=== PATIENT | female | born 1930 | race Caucasian/White ===

== ENCOUNTER 2018-03-10 22:51 | Emergency (ER) | payer OTHER ==
--- NOTE | 2018-03-10 23:08 | ED MVC/FALL/TRAUMA COMPLAINT ---
History of Present Illness General Chief Complaint: Fall Stated Complaint: FALL Source: patient Exam Limitations: no limitations Vital Signs & Intake/Output Vital Signs & Intake/Output Vital Signs Date Time Temp Pulse Resp B/P B/P Pulse O2 O2 Flow FiO2 Mean Ox Delivery Rate 03/11 0130 98.0 73 20 124/78 97 03/10 2256 97.8 73 18 118/73 97 Nasal 2.0L Cannula ED Intake and Output 03/11 0000 03/10 1200 Intake Total Output Total Balance Patient 150 lb Weight Weight Estimated Measurement Method Allergies Coded Allergies: NO KNOWN ALLERGIES (01/04/11) Reconcile Medications Pravastatin Sodium (Pravachol) 40 MG TABLET 1 TAB PO DAILY CHOL (Reported) Triage Note: PER EMS PT FELL EARLY THIS AM, AND LAID ON FLOOR FOR A TIME, PT SOMEHOW GOT UP BUT FELL AGAIN, AND COULD NOT GET UP UNTIL SON GOT THERE THIS PM, CO PAIN TO L HIP HX OF FALLS ALL THE TIME DOES NOT ROUTINELY GO TO DRS. ON O2 AT 1 LITER BASELINE Triage Nurses Notes Reviewed? yes Onset: Abrupt Duration: hour(s): Timing: recent history Severity: moderate Injuries/Fall Location: lower extremity Method of Injury: fall Loss of Consciousness: no loss of consciousness Modifying Factors: Improves With: rest. Worsens With: movement, palpation. Associated Symptoms: left hip pain HPI: 87 yo woman from home, presents after a fall, sometime in the morning of 03/10. She reports that she was eating ice cream and then suffered a mechanical fall. "I feel on my bum and couldn't get up... I was on the ground for a long time." She was unable to get up. She notes left hip pain when she tries to move. She denies loss of consciousness, but thinks she maybe hit her head. She confers a mild headache, but no focal pain in neck, chest, abdomen or other extremities. She denies blood thinners. She is otherwise well. Past History Travel History Traveled to [place] past 21 day No Medical History Any Pertinent Medical History? see below for history Respiratory: on home 02 1 liter Surgical History Surgical History: none Psychosocial History Who do you live with Paid Attentent What is your primary language Swedish Family History Hx Contributory? No Review of Systems Review of Systems Constitutional: Reports: no symptoms. Eyes: Reports: no symptoms. Ears, Nose, Throat, Mouth: Reports: no symptoms. Respiratory: Reports: no symptoms. Cardiovascular: Reports: no symptoms. Gastrointestinal/Abdominal: Reports: no symptoms. Genitourinary: Reports: no symptoms. Musculoskeletal: Reports: no symptoms. Skin: Reports: no symptoms. Neurological/Psychological: Reports: no symptoms. All Other Systems: Reviewed and Negative Physical Exam Physical Exam General Appearance: well developed/nourished, mild distress Head: atraumatic, normal appearance Eyes: Bilateral: normal appearance, PERRL, EOMI. Ears, Nose, Throat, Mouth: hearing grossly normal, moist mucous membrane Neck: normal inspection, supple, full range of motion, normal alignment Respiratory: normal breath sounds, chest non-tender, no respiratory distress, quiet respiration, lungs clear Cardiovascular: regular rate/rhythm Gastrointestinal: normal bowel sounds, soft, non-tender Back: normal inspection, normal range of motion Extremities: left leg externally rotated and shortened. 2+distal pulses and light touch intact bilaterally. Neurologic/Psych: no motor/sensory deficits, awake, alert, oriented x 3 Skin: intact, normal color, warm/dry Core Measures ACS in differential dx? No CVA/TIA Diagnosis No Sepsis Present: No Sepsis Focused Exam Completed? No Progress Differential Diagnosis: C/T/L spine injury, ext injury, ICH Plan of Care: Orders Procedure Date/time Status Vital, Insertion/Removal/Asses 03/11 0001 Active CULTURE,URINE 03/11 0001 Active URINALYSIS 03/11 0001 Complete TROPONIN LEVEL 03/10 2309 Complete PARTIAL THROMBOPLASTIN TIME 03/10 2309 Complete PROTHROMBIN TIME 03/10 230 Complete LIPASE 03/10 230 Complete HEPATIC FUNCTION PANEL 03/10 230 Complete CREATINE PHOSPHOKINASE 03/10 2309 Complete CBC WITHOUT DIFFERENTIAL 03/10 2309 Complete BASIC METABOLIC PANEL 03/10 230 Complete AMYLASE 03/10 230 Complete EKG 03/10 2309 Active TYPE & SCREEN (NOT X-MATCH) 03/10 2309 Complete Laboratory Tests 03/11/18 0150: Urinalysis MOD H, Urine Color YEL, Urine Clarity HAZY H, Urine pH 5.5, Ur Specific Salmon >= 1.030, Urine Protein 30 H, Urine Ketones TRACE H, Urine Nitrite NEG, Urine Bilirubin NEG, Urine Urobilinogen 0.2, Ur Leukocyte Esterase NEG, Ur Microscopic SEDIMENT EXAMINED, Urine RBC 5-10 H, Urine WBC 1-3 H, Ur Epithelial Cells MANY H, Urine Bacteria FEW H, Urine Hemoglobin SMALL H, Urine Glucose NEG 03/10/18 2315: Anion Gap 12, Estimated GFR 36 L, BUN/Creatinine Ratio 37.1 H, Glucose 146 H, Calcium 9.8, Total Bilirubin 0.7, Direct Bilirubin 0.2, AST 40 H, ALT 33, Alkaline Phosphatase 61, Creatine Kinase 719 H, Troponin I 1.42 *H, Total Protein 7.4, Albumin 4.1, Amylase 46, Lipase 29, PT 11.5, INR 1.05, APTT 29, CBC w Diff NO MAN DIFF REQ, RBC 4.05 L, MCV 90.6, MCH 30.1, MCHC 33.2, RDW 14.9 H, MPV 7.7, Gran % 87.7 H, Lymphocytes % 4.6 L, Monocytes % 7.6, Eosinophils % 0, Basophils % 0.1, Absolute Granulocytes 11.9 H, Absolute Lymphocytes 0.6 L, Absolute Monocytes 1.0 H, Absolute Eosinophils 0, Absolute Basophils 0 Microbiology 03/11 0150 URINE ROUT: Urine Culture - RECD Diagnostic Imaging: Viewed by Me: CT Scan. Discussed w/RAD: CT Scan. Radiology Impression: PATIENT: PILI FREY I PRESENT AGE: 87 PATIENT ACCOUNT NO: [id number] : 32 LOCATION: [facility] ORDERING PHYSICIAN: Rajendra Pedraza MD SERVICE DATE: 03/10/18 EXAM TYPE: RAD - XRY-AP PELVIS; XRY-HIP 2-3 VIEWS, LEFT EXAMINATION: 1. Pelvis. 2. Left hip. CLINICAL INFORMATION: Fall. Hip fracture. COMPARISON: None TECHNIQUE: Single view pelvis. AP crosstable lateral view of left hip. FINDINGS: There is a fracture through the left femoral neck. The distal fracture fragment is angulated and displaced superiorly. Femoral head remains seated in acetabulum. 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 There is multilevel degenerative spondylosis of the spine with disc height narrowing vacuum disc phenomena endplate spurring. Large volume of stool in visualized colonic bowel loops. IMPRESSION: Fracture left femoral neck. DICTATED BY: Tomás Sunshine MD DATE/TIME DICTATED:03/10/182336 SLIP BOX CHANGER:RAD.MINA DATE/TIME TRANSCRIBED:03/10/182336 CONFIDENTIAL, DO NOT COPY WITHOUT APPROPRIATE AUTHORIZATION. <Electronically signed in Other Vendor System> SIGNED BY: Tomás Sunshine MD 03/10/182341, PATIENT: PILI FREY I PRESENT AGE: 87 PATIENT ACCOUNT NO: [id number] : 32 LOCATION: [facility] ORDERING PHYSICIAN: Rajendra Pedraza MD SERVICE DATE: 03/10/18 EXAM TYPE: CAT - CT CERV SPINE WO IV CONTRAST; CT HEAD WO IV CONTRAST EXAMINATION: CT HEAD WITHOUT CONTRAST CT CERVICAL SPINE WITHOUT CONTRAST CLINICAL INFORMATION: Fall. Trauma. COMPARISON: 924.44 TECHNIQUE: Imaging was performed from the skull base to vertex without intravenous administration of contrast. In addition, helical noncontrast CT imaging was acquired through the cervical spine and source images were reviewed along with axial reconstructions and sagittal and coronal MPRs. DLP: 924.44 mGy- cm FINDINGS: HEAD: No intracranial mass, hemorrhage, or midline shift is visualized. There is atrophy with prominence of the ventricles and the sulci and hypodensity of the periventricular white matter due to chronic small vessel ischemic disease. There is vascular calcifications of the internal carotid arteries bilaterally. No extra-axial collections are identified. The paranasal sinuses and mastoid air cells are well aerated. CERVICAL SPINE: There is no evidence of acute cervical spine fracture. Vertebral bodies remain normal in height. Cervical vertebrae have normal alignment. There is advanced multilevel degenerative spondylosis of the cervical spine with disc height narrowing and endplate spurs and facet joint arthrosis No pre- or paravertebral soft tissue abnormality is identified. There is emphysematous lucencies of the upper lobes. There is vascular calcification of the aorta and the carotids. IMPRESSION: 1. No acute intracranial pathology. 2. No CT evidence of acute cervical spine fracture or traumatic subluxation DICTATED BY: Tomás Sunshine MD DATE/TIME DICTATED:2345 SLIP BOX CHANGER:JUNIE DATE/TIME TRANSCRIBED:03/10/182345 CONFIDENTIAL, DO NOT COPY WITHOUT APPROPRIATE AUTHORIZATION. <Electronically signed in Other Vendor System> SIGNED BY: Tomás Sunshine MD 03/10/182354, PATIENT: PILI FREY I PRESENT AGE: 87 PATIENT ACCOUNT NO: [id number] : 32 LOCATION: [facility] ORDERING PHYSICIAN: Rajendra Pedraza MD SERVICE DATE: 03/10/18 EXAM TYPE: CAT - CT ABD & PELVIS W/ O IV CONTRAS; CT CHEST WO IV CONTRAST EXAMINATION: CT CHEST, ABDOMEN AND PELVIS WITHOUT CONTRAST CLINICAL INFORMATION: Trauma. Fall. COMPARISON: Chest x-ray 07/2017. Pelvis and left hip 03/10/2018 TECHNIQUE: Multidetector volumetric CT imaging of the chest, abdomen and pelvis was obtained without IV or oral contrast. Coronal and sagittal reformatted images are performed at CT scanner. DLP: 362.82 mGy-cm. FINDINGS: CT CHEST: Lungs: There is linear atelectasis or scarring seen along the left major fissure at the anterior left lung base. The lungs are otherwise clear. The central bronchial airways are open. Mediastinum: No mediastinal mass or hematoma. There is extensive vascular wall calcifications of aorta. There is coronary artery calcification. There is no pericardial effusion. Pleura: There is no pleural effusion. No pleural mass or thickening. Axilla: No lymphadenopathy. LIVER, GALLBLADDER, AND BILIARY TREE: The liver is normal in size, shape, and attenuation. No focal hepatic lesion or biliary ductal dilatation is present. Small gallstones layering dependently in the gallbladder. No edema around the gallbladder. Extrahepatic CBD measures 1 cm. No calcified stone seen in the bile ducts. PANCREAS: Unremarkable. SPLEEN: Unremarkable. ADRENAL GLANDS: Unremarkable. KIDNEYS AND URETERS: The kidneys are normal in size, shape, and attenuation. No hydronephrosis, hydroureter, or calculi seen. No perinephric stranding. 1.1 cm pedunculated cyst off the midpole of the left kidney posteriorly. BLADDER: Unremarkable. GASTROINTESTINAL TRACT: The small and large bowel are unremarkable. Moderate to large-volume of stool throughout the colon. No acute changes of the bowel wall. No bowel obstruction. The appendix is unremarkable. The small bowel loops are unremarkable. ABDOMINAL WALL: No significant hernia is appreciated. LYMPH NODES: Normal. VASCULAR: There are extensive atherosclerotic vascular calcifications of aorta and iliac arteries. PELVIC VISCERA: Multiple calcified fibroids within uterus. No adnexal abnormality. OSSEOUS STRUCTURES: There is a transverse fracture through the left femoral neck. There is marked degenerative arthrosis of the right hip area there is a multilevel degenerative spondylosis of the dorsal and lumbar spine with disc height narrowing and endplate spur and facet joint arthrosis. There is a levoscoliosis of the lumbar spine. IMPRESSION: 1. Fracture of the left femoral neck. 2. No acute abnormality of the chest abdomen or pelvis DICTATED BY: Tomás Sunshine MD DATE/TIME DICTATED:03/10/182351 SLIP BOX CHANGER:JUNIE DATE/ TIME TRANSCRIBED:03/10/182351 CONFIDENTIAL, DO NOT COPY WITHOUT APPROPRIATE AUTHORIZATION. <Electronically signed in Other Vendor System> SIGNED BY: Tomás Sunshine MD 03/11/186 Initial ED EKG: normal axis, normal intervals, normal p-waves, normal QRS complex, normal sinus rhythm Departure Departure Disposition: OTHER [facility] (ACUTE) Condition: Stable Clinical Impression Primary Impression: Closed left hip fracture Secondary Impressions: Myocardial infarction Referrals: Jayy SALDAÑA,Arpit Vasquez (PCP/Family) Departure Forms: Customer Survey General Discharge Information Comments 03/11/18, 1:02AM...call placed to ortho... discussed with dr. nunez (cards) .... pt merits supportive measures with normal ekg, would defer heparin given fracture and concern for bleeding. aspirin given. 03/11/18, 1:56am... due to the complicated multi-system involvement of the patient's condition, pt merits transfer... discussed with dr. obregon, [facility], who accepts patient. Critical Care Note Critical Care Note Critical Care Time: 30-74 min Critical Care Note Critical Care Time: 30-74 min
[2018-03-10 23:32] LABS: ABSOLUTE BASOPHIL COUNT 0 /CUMM (0.0-0.2); ABSOLUTE EOSINOPHIL COUNT 0 /CUMM (0.0-0.7); ABSOLUTE GRANULOCYTE CT 11.9 /CUMM (1.4-6.5); ABSOLUTE LYMPH COUNT 0.6 /CUMM (1.2-3.4); BASOPHIL % 0.1 % (0.0-2.0); EOSINOPHIL % 0 % (0-5); HEMATOCRIT 36.7 % (37-47); MEAN CORPUSCULAR HGB 30.1 PG (27.0-31.0); MEAN CORPUSCULAR HGB CONC 33.2 G/DL (33.0-37.0); MEAN CORPUSCULAR VOLUME 90.6 FL (81.0-99.0); MEAN PLATELET VOLUME 7.7 FL (7.4-10.4); PLATELET COUNT 252 /CUMM (130-400); RBC DISTRIBUTION WIDTH 14.9 % (11.5-14.5); RED BLOOD CELL CT 4.05 /CUMM (4.20-5.40); WHITE BLOOD CELL COUNT 13.6 /CUMM (4.8-10.8)
[2018-03-10 23:39] LABS: PT 11.5 SEC (9.4-12.5); PTT 29 SEC (25-37)
--- NOTE | 2018-03-10 23:42 | RADIOLOGY REPORT ---
EXAMINATION: 1. Pelvis. 2. Left hip. CLINICAL INFORMATION: Fall. Hip fracture. COMPARISON: None TECHNIQUE: Single view pelvis. AP crosstable lateral view of left hip. FINDINGS: There is a fracture through the left femoral neck. The distal fracture fragment is angulated and displaced superiorly. Femoral head remains seated in acetabulum. 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 There is multilevel degenerative spondylosis of the spine with disc height narrowing vacuum disc phenomena endplate spurring. Large volume of stool in visualized colonic bowel loops. IMPRESSION: Fracture left femoral neck.
[2018-03-10 23:46] LABS: GRANULOCYTE % 87.7 % (42.2-75.2)
--- NOTE | 2018-03-10 23:55 | CT SCAN REPORT ---
EXAMINATION: CT HEAD WITHOUT CONTRAST CT CERVICAL SPINE WITHOUT CONTRAST CLINICAL INFORMATION: Fall. Trauma. COMPARISON: 924.44 TECHNIQUE: Imaging was performed from the skull base to vertex without intravenous administration of contrast. In addition, helical noncontrast CT imaging was acquired through the cervical spine and source images were reviewed along with axial reconstructions and sagittal and coronal MPRs. DLP: 924.44 mGy-cm FINDINGS: HEAD: No intracranial mass, hemorrhage, or midline shift is visualized. There is atrophy with prominence of the ventricles and the sulci and hypodensity of the periventricular white matter due to chronic small vessel ischemic disease. There is vascular calcifications of the internal carotid arteries bilaterally. No extra-axial collections are identified. The paranasal sinuses and mastoid air cells are well aerated. CERVICAL SPINE: There is no evidence of acute cervical spine fracture. Vertebral bodies remain normal in height. Cervical vertebrae have normal alignment. There is advanced multilevel degenerative spondylosis of the cervical spine with disc height narrowing and endplate spurs and facet joint arthrosis No pre- or paravertebral soft tissue abnormality is identified. There is emphysematous lucencies of the upper lobes. There is vascular calcification of the aorta and the carotids. IMPRESSION: 1. No acute intracranial pathology. 2. No CT evidence of acute cervical spine fracture or traumatic subluxation
--- NOTE | 2018-03-11 00:07 | CT SCAN REPORT ---
EXAMINATION: CT CHEST, ABDOMEN AND PELVIS WITHOUT CONTRAST CLINICAL INFORMATION: Trauma. Fall. COMPARISON: Chest x-ray 01/03/2017. Pelvis and left hip 03/10/2018 TECHNIQUE: Multidetector volumetric CT imaging of the chest, abdomen and pelvis was obtained without IV or oral contrast. Coronal and sagittal reformatted images are performed at CT scanner. DLP: 362.82 mGy-cm. FINDINGS: CT CHEST: Lungs: There is linear atelectasis or scarring seen along the left major fissure at the anterior left lung base. The lungs are otherwise clear. The central bronchial airways are open. Mediastinum: No mediastinal mass or hematoma. There is extensive vascular wall calcifications of aorta. There is coronary artery calcification. There is no pericardial effusion. Pleura: There is no pleural effusion. No pleural mass or thickening. Axilla: No lymphadenopathy. LIVER, GALLBLADDER, AND BILIARY TREE: The liver is normal in size, shape, and attenuation. No focal hepatic lesion or biliary ductal dilatation is present. Small gallstones layering dependently in the gallbladder. No edema around the gallbladder. Extrahepatic CBD measures 1 cm. No calcified stone seen in the bile ducts. PANCREAS: Unremarkable. SPLEEN: Unremarkable. ADRENAL GLANDS: Unremarkable. KIDNEYS AND URETERS: The kidneys are normal in size, shape, and attenuation. No hydronephrosis, hydroureter, or calculi seen. No perinephric stranding. 1.1 cm pedunculated cyst off the midpole of the left kidney posteriorly. BLADDER: Unremarkable. GASTROINTESTINAL TRACT: The small and large bowel are unremarkable. Moderate to large-volume of stool throughout the colon. No acute changes of the bowel wall. No bowel obstruction. The appendix is unremarkable. The small bowel loops are unremarkable. ABDOMINAL WALL: No significant hernia is appreciated. LYMPH NODES: Normal. VASCULAR: There are extensive atherosclerotic vascular calcifications of aorta and iliac arteries. PELVIC VISCERA: Multiple calcified fibroids within uterus. No adnexal abnormality. OSSEOUS STRUCTURES: There is a transverse fracture through the left femoral neck. There is marked degenerative arthrosis of the right hip area there is a multilevel degenerative spondylosis of the dorsal and lumbar spine with disc height narrowing and endplate spur and facet joint arthrosis. There is a levoscoliosis of the lumbar spine. IMPRESSION: 1. Fracture of the left femoral neck. 2. No acute abnormality of the chest abdomen or pelvis
[2018-03-11 01:30] VITALS: BP 124/78
[2018-03-11] MEDS ORDERED: PRAVACHOL40 M1 PO (01:52)
== END 2018-03-11 02:33 | disposition short-term general hospital (02) ==
LOC: ERH 22:51
PROVIDERS: Pediatrics
DX: S72.002A Fracture of unspecified part of neck of left femur, initial encounter for closed fracture (principal); I21.9 Acute myocardial infarction, unspecified; W19.XXXA Unspecified fall, initial encounter; Y93.9 Activity, unspecified; Y92.9 Unspecified place or not applicable; E78.00 Pure hypercholesterolemia, unspecified
CPT/HCPCS: 72170; 73502-LT; 74176; 81001; 87086; 93005; 93010; 96374; 96375; 99291; J0131

== ENCOUNTER 2018-03-22 08:25 | Observation (INO) | payer OTHER ==
[~2018-03-22] VITALS: Ht 157.5 cm; Wt 64.9 kg
[~2018-03-22 08:25] MED LIST: PRAVACHOL40 M1 PO
--- NOTE | 2018-03-22 09:01 | ED GENERAL ADULT ---
History of Present Illness General Chief Complaint: General Adult Stated Complaint: BIBA ALTERED MENTAL STATUS Source: EMS Exam Limitations: confusion Vital Signs & Intake/Output Vital Signs & Intake/Output Vital Signs Date Time Temp Pulse Resp B/P B/P Pulse O2 O2 Flow FiO2 Mean Ox Delivery Rate 03/22 1340 98.3 71 20 139/62 100 Nasal Cannula 03/22 1118 98.3 68 20 160/75 100 Nasal Cannula 03/22 0920 97.8 78 16 151/68 96 Nasal 3.0L Cannula 03/22 0838 94 Nasal 2.0L Cannula 03/22 0838 97.5 77 22 106/53 94 Nasal 2.0L Cannula Allergies Coded Allergies: NO KNOWN ALLERGIES (01/04/11) Reconcile Medications Acetaminophen (Acephen) 650 MG SUPP.RECT 1 SUPP TX Q4H PRN PAIN/TEMP ( Reported) Acetaminophen (Pain Reliever) 325 MG TABLET 3 TAB PO Q6H PRN PAIN (Reported) Albuterol Sulfate 2.5 MG/3 ML (0.083 %) VIAL.NEB 1 Vial INH/MIGUELINA Q4P PRN SOB/ WHEEZING (Reported) Aspirin (Ecotrin*) 81 MG TABLET.DR 1 TAB PO DAILY HEART/BLOOD (Reported) Bisacodyl 10 MG SUPP.RECT 1 SUP RC AD PRN CONSTIPATION (Reported) Ipratropium/Albuterol Sulfate (Iprat-Albut 0.5-3(2.5) MG/3 Ml) 0.5 MG-3 MG (2.5 MG BASE)/3 ML AMPUL.NEB 1 VIAL INH TID RESP. (Reported) Magnesium Hydroxide (Milk Of Magnesia) 400 MG/5 ML ORAL.SUSP 30 ML PO DAILY PRN CONSTIPATION (Reported) Melatonin 3 MG TABLET 1 TAB PO QHS SUPPLEMENT (Reported) Na Phos,M-B/Na Phos,Di-Ba (Fleet Enema) 19 GRAM-7 GRAM/118 ML ENEMA 1 E RC AD PRN CONSTIPATION (Reported) Polyethylene Glycol 3350 (Miralax) 17 GRAM POWD.PACK 1 PAC PO DAILY GI ( Reported) dissolve in water Pravastatin Sodium (Pravachol) 40 MG TABLET 1 TAB PO DAILY CHOL (Reported) Sennosides/Docusate Sodium (Senna Plus Tablet) 8.6 MG-50 MG TABLET 2 TAB PO BID GI (Reported) Tiotropium Page (Spiriva) 18 MCG CAP.W.DEV 1 CAP INH DAILY COPD (Reported) Trazodone HCl 50 MG TABLET 25 MG PO Q8H PRN ANXIETY (Reported) Triage Note: 87F SIB SNF/STR FOR PERIOD OF UNRESPONSIVENESS. ON EMS ARRIVAL, PT PRESENTED W SNORING RESPIRATIONS AND O2 SAT OF 82% ON HER BASELINE 2LNC. RECENTLY HAD LEFT HIP SX WITH OLIMPIA INTACT. INCISION LOOKS WELL HEALING, NON ERYTHEMATOUS AND NO DRAINAGE NOTED. PT ARRIVES WITH EYES CLOSED AND MOANING OUT "HELP ME!". STATES THAT HER BONES HURT AND "I WANT SOME MORPHINE!". ABLE TO ANSWER SIMPLE QUESTIONS. ACCUCHECK 116. BP 106/53. Triage Nurses Notes Reviewed? yes HPI: 87-year-old female brought by EMS for altered mental status. The patient was at a usp following the surgery. The patient was unresponsive this morning , EMS was called. They found the patient was hypotensive in the 80s. The patient was breathing, and not hypoxic. They brought her in. She has become more more responsive at time. The patient's only complaint is that I need help but does not give any more details. Denies any specific complaints. Denies any review of system. Past History Travel History Traveled to [place] past 21 day No Medical History Any Pertinent Medical History? see below for history Neurological: NONE EENT: NONE Cardiovascular: hyperlipidemia Respiratory: on home 02 1 liter Gastrointestinal: NONE Hepatic: NONE Renal: NONE Musculoskeletal: NONE Psychiatric: NONE Endocrine: NONE Surgical History Surgical History: none Psychosocial History Who do you live with Paid Attentent What is your primary language Congolese Tobacco Use: Refused to answer ETOH Use: denies use Illicit Drug Use: denies illicit drug use Family History Hx Contributory? Yes Review of Systems Review of Systems Constitutional: Denies: chills, diaphoresis, fever. Comments She denies any complaints. Physical Exam Physical Exam General Appearance: no apparent distress, awake, comfortable Head: atraumatic, normal appearance Eyes: Bilateral: PERRL, EOMI, pale conjunctivae. Ears, Nose, Throat: normal pharynx, normal ENT inspection Neck: normal inspection, supple, full range of motion Respiratory: normal breath sounds, chest non-tender, no respiratory distress Cardiovascular: regular rate/rhythm, edema Gastrointestinal: normal bowel sounds, soft, non-tender Back: normal inspection, normal range of motion Extremities: see below Skin: intact, normal color, warm/dry Comments: Surgical scar on the left hip. No tenderness. No signs of infection. Core Measures ACS in differential dx? Yes CVA/TIA Diagnosis: No Sepsis Present: No Sepsis Focused Exam Completed? No Progress Differential Diagnoses No apparent distress. The patient is awake. Stable vital signs. Not hypoxic. Stable blood pressure. Plan of Care: Orders Procedure Date/time Status Heart Healthy Diet 03/22 L Complete Heart Healthy Diet 03/22 D Active EKG 03/[address] in observation 03/22 1415 Active ED Holding Orders 03/22 1415 Active Code Status 03/22 141 Active Add-on Test (ER Only) 03/22 0901 Active VITAL CAPACITY MONITORING 03/22 0847 Active Saline Lock 03/22 0847 Active URINALYSIS 03/22 0847 Complete TROPONIN LEVEL 03/22 0847 Complete LACTIC ACID 03/22 0847 Complete CBC WITHOUT DIFFERENTIAL 03/22 0847 Complete BASIC METABOLIC PANEL 03/22 0847 Complete Current Medications Sig/Hans Start time Last Medication Dose Stop Time Status Admin Sodium Chloride 1,000 ML Q10H 03/22 1430 UNVr (Normal Saline 0.9%) Laboratory Tests 03/22/18 1213: Urine Color STRAW, Urine Clarity HAZY H, Urine pH 6.0, Ur Specific [place] 1.015, Urine Protein NEG, Urine Ketones NEG, Urine Nitrite NEG, Urine Bilirubin NEG, Urine Urobilinogen 0.2, Ur Leukocyte Esterase TRACE H, Ur Microscopic SEDIMENT EXAMINED, Urine RBC RARE, Urine WBC 1-3 H, Ur Epithelial Cells MANY H , Urine Bacteria RARE H, Hyaline Casts RARE H, Granular Casts RARE H, Micro UA Comment BUDDING YEAST H, Urine Hemoglobin NEG, Urine Glucose NEG 03/22/18 0910: Anion Gap 4 L, Estimated GFR 60, BUN/Creatinine Ratio 31.1 H, Glucose 95, Lactic Acid 0.6 L, Calcium 8.8, Troponin I 0.07, CBC w Diff NO MAN DIFF REQ, RBC 3.18 L, MCV 93.2, MCH 30.0, MCHC 32.2 L, RDW 15.3 H, MPV 8.0, Gran % 78.2 H, Lymphocytes % 12.4 L, Monocytes % 7.0, Eosinophils % 2.0, Basophils % 0.4, Absolute Granulocytes 7.8 H, Absolute Lymphocytes 1.2, Absolute Monocytes 0.7 H, Absolute Eosinophils 0.2, Absolute Basophils 0 Initial ED EKG: see below Comments: 1415 the patient is awake and alert 3. Follows commands. Requesting food. Family is present in the room. She states the patient appears slightly somnolent compared to baseline. FDC confirmed that the patient never got any narcotics today. The patient was hypotensive and unresponsive and had recent myocardial infarction. She is not safe to go home we will keep her in the hospital for observation. No chest pain or shortness of breath EKG reading. Sinus, rate of 73. Normal axis with normal intervals. No acute ST-T changes. Compared to the EKG from March 11, 2018: Minor changes. Departure Departure Time of Disposition: 1416 Disposition: STILL A PATIENT Condition: Stable Clinical Impression Primary Impression: Syncope Referrals: Arpit Hope MD (PCP/Family) Departure Forms: Customer Survey General Discharge Information Observation Note Spoke With: Braydon SALDAÑA,Minh Rationale for Observation: My rational for observation is as follows recent OR, witnessed syncope. Hypotension. Will admit for observation. Critical Care Note Critical Care Note Critical Care Time: non-applicable
--- NOTE | 2018-03-22 09:34 | CT SCAN REPORT ---
EXAMINATION: CT HEAD WITHOUT CONTRAST CLINICAL INFORMATION: Altered mental status COMPARISON: CT head 03/10/2018. TECHNIQUE: Contiguous axial imaging was performed from the skull base to vertex without intravenous administration of contrast. DLP: 636 mGy-cm FINDINGS: There is no evidence of acute intracranial hemorrhage or territorial infarction. No abnormal mass effect or midline shift is seen. There is mild global volume loss with periventricular low-attenuation compatible with small vessel ischemic disease. Vascular calcification is seen in the internal carotid arteries bilaterally. No extra-axial fluid collections are identified. The osseous structures and soft tissues are normal. The mastoid air cells and visualized portions of the paranasal sinuses are well aerated. IMPRESSION: No acute intracranial pathology.
[2018-03-22 09:39] LABS: ABSOLUTE BASOPHIL COUNT 0 /CUMM (0.0-0.2); ABSOLUTE EOSINOPHIL COUNT 0.2 /CUMM (0.0-0.7); ABSOLUTE GRANULOCYTE CT 7.8 /CUMM (1.4-6.5); ABSOLUTE LYMPH COUNT 1.2 /CUMM (1.2-3.4); ABSOLUTE MONOCYTE COUNT 0.7 /CUMM (0.10-0.60); BASOPHIL % 0.4 % (0.0-2.0); GRANULOCYTE % 78.2 % (42.2-75.2); HEMATOCRIT 29.7 % (37-47); MEAN CORPUSCULAR HGB CONC 32.2 G/DL (33.0-37.0); MEAN CORPUSCULAR VOLUME 93.2 FL (81.0-99.0); PLATELET COUNT 295 /CUMM (130-400); RBC DISTRIBUTION WIDTH 15.3 % (11.5-14.5); RED BLOOD CELL CT 3.18 /CUMM (4.20-5.40); WHITE BLOOD CELL COUNT 9.9 /CUMM (4.8-10.8)
[2018-03-22] MEDS ORDERED: SPIRIVA18 MCG INH (12:41)
[2018-03-22] MEDS ORDERED: SENNA PLUS TAB1 EACH PO (12:41)
[2018-03-22] MEDS ORDERED: ASPIRIN EC81 M1 PO (12:41)
[2018-03-22] MEDS ORDERED: MELATONIN3 M4 PO (12:42)
[2018-03-22] MEDS ORDERED: MIRALAX17 G1 PO (12:42)
[2018-03-22] MEDS ORDERED: IPRAT-ALBUT 0.5-3 ML INH (12:43)
[2018-03-22] MEDS ORDERED: MILK OF MA400 MG/52 PO (12:47)
[2018-03-22] MEDS ORDERED: BISACODYL10 M1 RC (12:48)
[2018-03-22] MEDS ORDERED: FLEET ENEMA133 ML RC (12:50)
[2018-03-22] MEDS ORDERED: ACEPHEN650 M1 PR (12:54)
[2018-03-22] MEDS ORDERED: ALBUTEROL2.5 MG/3 M INH/SOL (12:56)
[2018-03-22] MEDS ORDERED: TRAZODONE HCL50 M1 PO (12:56)
[2018-03-22] MEDS ORDERED: PAIN RELIEVER325 MG PO (12:58)
--- NOTE | 2018-03-22 16:22 | History & Physical ---
Brandt SALDAÑA,Dian 03/22/18 1557: General Information and HPI MD Statement: I have seen and personally examined PILI FREY I and documented this H&P. The patient is a 87 year old F who presented with a patient stated chief complaint of [UNRESPONSIVENESS]. Source of Information: patient, old records Exam Limitations: poor historian History of Present Illness: This is a 87 yo female currently residing at [facility] with PMH of COPD on 2L O2m hx c. diff, OA, anxiety, PVD, HLD who comes in for CC of unresponsiveness. Per [place] documentation pt was found early this morning to be difficult to rouse and pale. She was saturating 82% on her baseline 2L, her O2 was increased to 5L with good response and an ambulance was called. Notably earlier this month pt came to for hip fracture and was found to have troponin 1.42 and was transferred out for further management. Pt is unable to give any further history and can't tell me if she was treated for an ME. After surgery for her hip she was sent to [facility] for rehab. Per records her stay has been uneventful and pt did not receive any narcotic medications today. When asked why patient was sent to she states "because I was all agitated and acting funny." She denies any worsening SOB, CP, palpitations, change in vision or strength, N/V/D or recent illness. She states that her l. leg is recovering well. Allergies/Medications Allergies: Coded Allergies: NO KNOWN ALLERGIES (01/04/11) Home Med list Acetaminophen (Acephen) 650 MG SUPP.RECT 1 SUPP NV Q4H PRN PAIN/TEMP ( Reported) Acetaminophen (Pain Reliever) 325 MG TABLET 3 TAB PO Q6H PRN PAIN (Reported) Albuterol Sulfate 2.5 MG/3 ML (0.083 %) VIAL.NEB 1 Vial INH/MIGUELINA Q4P PRN SOB/ WHEEZING (Reported) Aspirin (Ecotrin*) 81 MG TABLET.DR 1 TAB PO DAILY HEART/BLOOD (Reported) Bisacodyl 10 MG SUPP.RECT 1 SUP RC AD PRN CONSTIPATION (Reported) Ipratropium/Albuterol Sulfate (Iprat-Albut 0.5-3(2.5) MG/3 Ml) 0.5 MG-3 MG (2.5 MG BASE)/3 ML AMPUL.NEB 1 VIAL INH TID RESP. (Reported) Magnesium Hydroxide (Milk Of Magnesia) 400 MG/5 ML ORAL.SUSP 30 ML PO DAILY PRN CONSTIPATION (Reported) Melatonin 3 MG TABLET 1 TAB PO QHS SUPPLEMENT (Reported) Na Phos,M-B/Na Phos,Di-Ba (Fleet Enema) 19 GRAM-7 GRAM/118 ML ENEMA 1 E RC AD PRN CONSTIPATION (Reported) Polyethylene Glycol 3350 (Miralax) 17 GRAM POWD.PACK 1 PAC PO DAILY GI ( Reported) dissolve in water Pravastatin Sodium (Pravachol) 40 MG TABLET 1 TAB PO DAILY CHOL (Reported) Sennosides/Docusate Sodium (Senna Plus Tablet) 8.6 MG-50 MG TABLET 2 TAB PO BID GI (Reported) Tiotropium [place] (Spiriva) 18 MCG CAP.W.DEV 1 CAP INH DAILY COPD (Reported) Trazodone HCl 50 MG TABLET 25 MG PO Q8H PRN ANXIETY (Reported) Past History Travel History Traveled to [place] past 21 day No Medical History Neurological: NONE EENT: NONE Cardiovascular: hyperlipidemia Respiratory: on home 02 1 liter Gastrointestinal: NONE Hepatic: NONE Renal: NONE Musculoskeletal: NONE Psychiatric: NONE Endocrine: NONE Surgical History Surgical History: none Past Family/Social History Psychosocial History ETOH Use: denies use Illicit Drug Use: denies illicit drug use Review of Systems Review of Systems Constitutional: Reports: see HPI. Exam & Diagnostic Data Last 24 Hrs of Vital Signs/I&O Vital Signs Date Time Temp Pulse Resp B/P B/P Pulse O2 O2 Flow FiO2 Mean Ox Delivery Rate 03/22 1548 98.5 76 20 135/70 100 Nasal Cannula 03/22 1340 98.3 71 20 139/62 100 Nasal Cannula 03/22 1118 98.3 68 20 160/75 100 Nasal Cannula 03/22 0920 97.8 78 16 151/68 96 Nasal 3.0L Cannula 03/22 0838 94 Nasal 2.0L Cannula 03/22 0838 97.5 77 22 106/53 94 Nasal 2.0L Cannula Intake & Output 03/22 1600 03/22 0800 03/22 0000 Intake Total Output Total Balance Patient 68.039 kg Weight Weight Estimated Measurement Method Physical Exam General Appearance Oriented X3, Cooperative Skin No Significant Lesion HEENT Atraumatic, EOMI, pin point pupils Neck Supple Cardiovascular 3/6 murmur at LUSB and a slightly different murmur in mitral area , no gallops or extra heart sounds appreciated Lungs Normal Air Movement Abdomen Soft, No Tenderness Neurological Sensation Intact, Cranial Nerves 3-12 NL Extremities No Edema, lateral aspect of l. thigh with joaquina in place. Wound looks clean with no drainage noted. Not warm or inappropriately erythematous. Last 24 Hrs of Labs/Praneeth: Laboratory Tests 03/22/18 1213: Urine Opiates Screen < 100, Methadone Screen < 40, Barbiturate Screen < 60, Ur Phencyclidine Scrn < 6.00, Amphetamines Screen < 100, U Benzodiazepines Scrn < 85, Urine Cocaine Screen < 50, Urine Cannabis Screen < 5.00, Urine Color STRAW, Urine Clarity HAZY H, Urine pH 6.0, Ur Specific [place] 1.015, Urine Protein NEG, Urine Ketones NEG, Urine Nitrite NEG, Urine Bilirubin NEG, Urine Urobilinogen 0.2, Ur Leukocyte Esterase TRACE H, Ur Microscopic SEDIMENT EXAMINED, Urine RBC RARE, Urine WBC 1-3 H, Ur Epithelial Cells MANY H, Urine Bacteria RARE H, Hyaline Casts RARE H, Granular Casts RARE H, Micro UA Comment BUDDING YEAST H, Urine Hemoglobin NEG, Urine Glucose NEG 03/22/18 0910: Anion Gap 4 L, Estimated GFR 60, BUN/Creatinine Ratio 31.1 H, Glucose 95, Lactic Acid 0.6 L, Calcium 8.8, Troponin I 0.07, CBC w Diff NO MAN DIFF REQ, RBC 3.18 L, MCV 93.2, MCH 30.0, MCHC 32.2 L, RDW 15.3 H, MPV 8.0, Gran % 78.2 H, Lymphocytes % 12.4 L, Monocytes % 7.0, Eosinophils % 2.0, Basophils % 0.4, Absolute Granulocytes 7.8 H, Absolute Lymphocytes 1.2, Absolute Monocytes 0.7 H, Absolute Eosinophils 0.2, Absolute Basophils 0 Assessment/Plan Assessment: 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 diff, OA, anxiety, PVD, HLD who comes in for CC of unresponsiveness and desaturation on her baseline O2. Her presentation is complicated in light of a recent hip surgery and an elevation in cardiac troponin of 1.42 (which is the only number we have and all subsequent [facility]). She seems to be AO X3 to me but a very poor historian. I'm unsure if this initial episode of unresponsiveness with hypoxia is a result of too much narcotics, worsening COPD, a cardiac ischemic event, or PE given immobility. PLAN: 1. Hypoxic Respiratory Failure: CT head was negative in ED. * TRC * FIO2 for sats of 92% * ABG * If necessary, will transition to BIPAP * Utox * duoneb * Trop and EKG X3 to rule out cardiac etiology * Continuous court monitor * Hold narcotics and Hold trazadone given her initial somnolence * Depending on ABG and if pt does not improve will consider CT PE. WELLS score is intermediate and she is Post-op. She does not have tachycardia and is almost back to her baseline O2 so will hold off at this time. 2. HTN: Her BP has been between 160/75-106/53. Not on any home meds * Con't monitor 3. Hyperkalemia: Pt has K 5.6. * Will repeat. 4. CAD: Pt has recent trop elevation of 1.42 earlier this month before she was transferred out. Pt can't offer any further details. Unsure if she had any angio etc. * Repeat EKG/TROP * ASA 81 5. Asymptomatic Candiduria: UA with budding yeast. Pt asymptomatic and afebrile without whitecount. * Con't monitor. No abx 6. Recent hip surgery: There is no documenetation of what kind of surgery pt had ; most likely ORIF. The site looks clean and seems to be healing well, but interestingly pt does not seem to be on any anticoagulation other than ASA. * Will need to follow up with ECF and hospital in AM. FC Chem ppx HHD As Ranked By This Provider Problem List: 1. Syncope Core Measures/Misc (05/11) Acute Coronary Syndrome ACS Diagnosis: No Congestive Heart Failure Congestive Heart Failure Diagnosis No Cerebrovascular Accident CVA/TIA Diagnosis: No VTE (View Protocol) VTE Risk Factors Acute Medical Illness No Mechanical VTE Prophylaxis d/t N/A MechProphylax Ordered No VTE Pharm Prophylaxis d/t NA PharmProphylax ordered Sepsis (View protocol) Sepsis Present: No If YES complete Sepsis Event Note If YES complete Sepsis Event Note Braydon SALDAÑA,Amir 03/22/18 1706: Core Measures/Misc (05/11) Sepsis (View protocol) If YES complete Sepsis Event Note If YES complete Sepsis Event Note Attending MD Review Statement Attending Statement Attending MD Statement: examined this patient, discuss w/resident/PA/I&C TECH, agreed w/resident/PA/I&C TECH, reviewed EMR data (avail), discussed with nursing Attending Assessment/Plan: Need to obtain records re: ortho surgery, cont to monitor clinically -hold any sedatives/pain meds for now -rest of the plan as per resident's note
--- NOTE | 2018-03-22 17:09 | Admission Certification ---
Admission Certification Certification Statement - As attending physician, I certify that at the time of - admission, based on clinical presentation, severity of - symptoms, need for further diagnostic testing and - therapeutic interventions, and risk of adverse outcomes - without in-hospital treatment, in my clinical assessment, - this patient requires an acute hospital stay for a minimum - of two nights or longer. I have also considered psychsocial - factors such as support system, advanced age, financial - issues, cognitive issues, and failed out-patient treatments, - past re-admission history, safety of patient, and lack of - compliance as applicable. Specific rationale supporting this admission is: COPD, altered mental status
[2018-03-22 23:00] VITALS: BP 141/69
--- NOTE | 2018-03-22 23:36 | Event Note ---
Event Note Event Note: Situation: An EKG of the patient is a 22: 00 showed ischemic changes Background: Patient is an 87-year-old woman with past meniscal history significant for COPD on home O2 2 L/min, peripheral vascular disease, hyperlipidemia, recent orthopedic surgery on the left eye with the joaquina in place. The patient was here with chief complaint of unresponsiveness and desaturation of her baseline O2. She also had hypertension, hyperkalemia on presentation. Assessment: EKG at 22: 00 showed T inversion in leads I, V1, V2, V4. (no T inversion in V3), minimal ECG changes. Potassium was decreased from 5.6 to 5.2. Troponins being checked every 6 hours from this morning where 0.07, 0.08, 0.09. The patient was sleeping and asymptomatic. Vital signs were stable. Blood pressure 141/69, respiratory rate 18, pulse rate 77, bedside pulse oximetry 97 on 1.5 L oxygen by nasal cannula. Since the troponin has been the same and the patient is asymptomatic suspicion for myocardial infarction is low, case was discussed with Dr. Ramsay and he agreed to the plan. Recommendation: Serially recheck EKG and troponin, and we will check the patient to see if she has had symptoms of chest pain or chest compression, shortness of breath, consistent with ACS. Electrolytes will also be rechecked in the morning at the same time with troponin at 4 AM. Cardiology consult was placed for next morning.
[2018-03-23 04:37] LABS: ABSOLUTE BASOPHIL COUNT 0.1 /CUMM (0.0-0.2); ABSOLUTE EOSINOPHIL COUNT 0.2 /CUMM (0.0-0.7); ABSOLUTE GRANULOCYTE CT 8.3 /CUMM (1.4-6.5); ABSOLUTE LYMPH COUNT 0.9 /CUMM (1.2-3.4); ABSOLUTE MONOCYTE COUNT 0.4 /CUMM (0.10-0.60); BASOPHIL % 0.6 % (0.0-2.0); EOSINOPHIL % 2.5 % (0-5); HEMATOCRIT 30.1 % (37-47); MEAN CORPUSCULAR HGB CONC 32.2 G/DL (33.0-37.0); MEAN PLATELET VOLUME 7.6 FL (7.4-10.4); PLATELET COUNT 322 /CUMM (130-400); RBC DISTRIBUTION WIDTH 15.4 % (11.5-14.5); RED BLOOD CELL CT 3.24 /CUMM (4.20-5.40); WHITE BLOOD CELL COUNT 9.9 /CUMM (4.8-10.8)
--- NOTE | 2018-03-23 07:19 | PN- Housestaff ---
Cecily Ko 03/23/18 0718: Subjective Follow-up For: Unresponsiveness, Hypoxic resp failure Complaints: no complaints Subjective: Pt seen and examined lying in bed comfortably. She says she wants to go home. No complaints/no acute events. Review of Systems Constitutional: Reports: see HPI. Objective Last 24 Hrs of Vital Signs/I&O Vital Signs Date Time Temp Pulse Resp B/P B/P Pulse O2 O2 Flow FiO2 Mean Ox Delivery Rate 03/24 0000 Nasal 2.0L Cannula 03/23 2233 98.1 85 18 100/70 95 Nasal Cannula 03/23 1842 Nasal 2.0L Cannula 03/23 1749 100 Nasal 2.0L Cannula 03/23 1729 98.1 82 18 158/84 100 Nasal 2.0L Cannula 03/23 1553 98.7 86 30 148/60 99 Nasal 1.0L Cannula 03/23 0837 98.4 03/23 0800 Nasal 1.0L Cannula 03/23 0656 80 18 135/68 99 Room Air 03/23 0143 97 Nasal 2.0L Cannula Intake & Output 03/24 0800 03/24 0000 03/23 1600 Intake Total 120 Output Total Balance 120 Intake, Oral 120 Patient 149 lb Weight Weight Bed scale Measurement Method Physical Exam General Appearance: Alert, Oriented X3, Cooperative, No Acute Distress Skin: [place]-post left hip repair Skin Temp/Moisture Exam: Cool/Dry Sepsis Skin Exam (color): Normal for Ethnicity HEENT: Atraumatic, Mucous Membr. moist/pink Neck: Supple Cardiovascular: Regular Rate, Normal S1, Normal S2, No Murmurs Lungs: Clear to Auscultation, Normal Air Movement Abdomen: Normal Bowel Sounds, Soft, No Tenderness, No Hepatospenomegaly Neurological: Normal Speech, Normal Tone Extremities: No Clubbing, No Cyanosis, No Edema Assessment/Plan Assessment: 87 yo female with PMH of COPD on 2L O2 hx c. diff, OA, anxiety, PVD, HLD who comes in for CC of unresponsiveness and desaturation on her baseline O2. She had a recent hip surgery and an elevation in cardiac troponin of 1.42. She was AO X3 to me but a very poor historian. The unresponsiveness is likely due to hypoxia is a result of too much narcotics, worsening COPD, a cardiac ischemic event, or PE given immobility. Trops: 0.12 (10pm last night)---0.13----0.09 PLAN: #Hypoxic Respiratory Failure: CT head was negative in ED. * Continuous java programmer * Trc/nebs, FiO2 for sats of 92% * If needed BIPAP can be started * Hold narcotics and Hold trazadone given her somnolence on adm #CAD: * Trops increased to 0.13 and have downtrended. * EKG last night [address] depressions in I, aVL, V1, V2 * Howver, it is unlikely to be ACS at this time * Pt has recent trop elevation of 1.42 earlier this month before she was transferred out. * We have requested [place] for records * Cont. ASA 81 #Asymptomatic Candiduria: * UA with budding yeast. * Pt asymptomatic and afebrile without white count. * No abx at this time #Recent hip surgery: * Most likely Left hip ORIF(documentation not available). * The site looks clean and healing well, but interestingly pt does not seem to be on any anticoagulation other than ASA. * [place] are requested to be removed by wound care today Status: Full Code Chem ppx Diet: heart healthy diet Problem List: 1. Syncope 2. Closed left hip fracture Pain Ratin Pain Location: left hip fracture Pain Goal: Remain pain free Pain Plan: follow pain pathway, percocet Tomorrow's Labs & Rationales: cbc, bep [facility]DA[facility] 03/23[facility]18 1634: Attending MD Review Statement Attending Statement Attending MD Statement: examined this patient, discuss w/resident/PA/HEALTH UNIT COORDINATOR, agreed w/resident/PA/HEALTH UNIT COORDINATOR, reviewed EMR data (avail), discussed with nursing, discussed with case mgmt, amended to note Attending Assessment/Plan: Patient seen and examined. Resting comfortably not in acute distress. Denies chest pain or shortness of breath. Denies palpitations. Cardiac enzymes are currently flat. EKG however shows dynamic T-wave changes nonspecific in nature. Cardiology evaluation appreciated. Although the troponin pattern is not consistent with acute coronary syndrome she does have significant risk factors. She did have significant troponin elevation earlier this month. Will obtain records from [facility] regarding what workup she had there. For now we will monitor the patient extremely. Continue aspirin and statin therapy. Obtain a transthoracic echocardiogram for comparison with any done previously.
--- NOTE | 2018-03-23 14:41 | Cons- Cardiology ---
See Addendum General Information and HPI Consulting Request Date of Consult: 03/23/18 Requested By: Sandhya Escoto MD Reason for Consult: Elevated troponin Source of Information: patient, old records Exam Limitations: poor historian History of Present Illness: 87-year-old female PMH COPD on home O2, c.diff, OA, PVD, HLD who was sent from skilled nursing after being found unresponsive and hypoxic. Patient was found to have elevated troponin, cardiology consult called. Patient denies current chest pain, dyspnea, palpitations, lightheadedness/dizziness. Patient reports that she had some mild muscle soreness in her chest after physical therapy last week, but denies associated palpitations, dyspnea. Patient denies PND/orthopnea. Patient denies fever/chills, cough, abdominal pain, diarrhea/constipation. Of note patient was at [facility] earlier this month after mechanical fall when she had a hip fracture. Troponin was 1.42 at that time, but patient was transferred to [facility]. The patient does not know what workup was done, however she denies any cardiac catheterization in the past. Allergies/Medications Allergies: Coded Allergies: NO KNOWN ALLERGIES (01/04/11) Home Med List: Acetaminophen (Acephen) 650 MG SUPP.RECT 1 SUPP ID Q4H PRN PAIN/TEMP ( Reported) Acetaminophen (Pain Reliever) 325 MG TABLET 3 TAB PO Q6H PRN PAIN (Reported) Albuterol Sulfate 2.5 MG/3 ML (0.083 %) VIAL.NEB 1 Vial INH/MIGUELINA Q4P PRN SOB/ WHEEZING (Reported) Aspirin (Ecotrin*) 81 MG TABLET.DR 1 TAB PO DAILY HEART/BLOOD (Reported) Bisacodyl 10 MG SUPP.RECT 1 SUP RC AD PRN CONSTIPATION (Reported) Ipratropium/Albuterol Sulfate (Iprat-Albut 0.5-3(2.5) MG/3 Ml) 0.5 MG-3 MG (2.5 MG BASE)/3 ML AMPUL.NEB 1 VIAL INH TID RESP. (Reported) Magnesium Hydroxide (Milk Of Magnesia) 400 MG/5 ML ORAL.SUSP 30 ML PO DAILY PRN CONSTIPATION (Reported) Melatonin 3 MG TABLET 1 TAB PO QHS SUPPLEMENT (Reported) Na Phos,M-B/Na Phos,Di-Ba (Fleet Enema) 19 GRAM-7 GRAM/118 ML ENEMA 1 E RC AD PRN CONSTIPATION (Reported) Polyethylene Glycol 3350 (Miralax) 17 GRAM POWD.PACK 1 PAC PO DAILY GI ( Reported) dissolve in water Pravastatin Sodium (Pravachol) 40 MG TABLET 1 TAB PO DAILY CHOL (Reported) Sennosides/Docusate Sodium (Senna Plus Tablet) 8.6 MG-50 MG TABLET 2 TAB PO BID GI (Reported) Tiotropium Mallie (Spiriva) 18 MCG CAP.W.DEV 1 CAP INH DAILY COPD (Reported) Trazodone HCl 50 MG TABLET 25 MG PO Q8H PRN ANXIETY (Reported) Current Medications: Current Medications Sig/Hans Start time Last Medication Dose Route Stop Time Status Admin Acetaminophen 0 .STK-MED ONE 03/23 0836 DC PO Acetaminophen 0 .STK-MED ONE 03/22 2103 DC PO Acetaminophen 650 MG Q6P PRN 03/22 1530 AC 03/23 PO 0836 Albuterol Sulfate 3 ML Q6 PRN 03/22 1530 AC 03/22 INH 2105 Aspirin Buffered 81 MG DAILY 03/23 0900 AC 03/23 PO 0941 Bisacodyl 10 MG DAILY NEEDED PRN 03/22 1600 AC ID Enoxaparin Sodium 30 MG DAILY 03/23 0900 AC 03/23 SC 0941 Ipratropium Mallie 2.5 ML ONCE PRN 03/22 1530 DC INH 03/22 2300 Magnesium Hydroxide 30 ML DAILY PRN 03/22 1600 AC PO Melatonin 0 .STK-MED ONE 03/22 2102 DC PO Melatonin 3 MG AT BEDTIME 03/22 2100 AC 03/22 PO 2104 Oxycodone HCl 10 MG Q6P PRN 03/22 1530 DC PO Oxycodone/ 1 TAB Q6P PRN 03/22 1530 DC Acetaminophen PO Pravastatin Sodium 20 MG DAILY 03/23 0900 AC 03/23 PO 0941 Sodium Chloride 1,000 ML Q10H 03/22 1430 AC 03/23 IV 0047 Review of Systems Review of Systems: As per HPI. Otherwise a 10 point review of systems was negative. Past History Travel History Traveled to [place] past 21 day No Medical History Neurological: NONE EENT: NONE Cardiovascular: hyperlipidemia Respiratory: on home 02 1 liter Gastrointestinal: NONE Hepatic: NONE Renal: NONE Musculoskeletal: NONE Psychiatric: NONE Endocrine: NONE Blood Disorders: NONE Cancer(s): NONE JOURNEY[employer] ME[employer]/Reproductive: NONE Surgical History Surgical History: 1 Psychosocial History Services at Home: Oxygen Smoking Status: Former Smoker ETOH Use: denies use Illicit Drug Use: denies illicit drug use Exam & Diagnostic Data Vital Signs and I&O Vital Signs Date Time Temp Pulse Resp B/P B/P Pulse O2 O2 Flow FiO2 Mean Ox Delivery Rate 03/23 0837 98.4 03/23 0800 Nasal 1.0L Cannula 03/23 0656 80 18 135/68 99 Room Air 03/23 0143 97 Nasal 2.0L Cannula 03/22 2300 98.0 77 18 141/69 97 Nasal 2.0L Cannula 03/22 2107 96 Nasal 1.5L Cannula 03/22 2027 97.8 83 20 132/77 96 Nasal 1.5L Cannula 03/22 1751 98.1 76 18 137/69 96 Nasal 2.0L Cannula 03/22 1548 98.5 76 20 135/70 100 Nasal Cannula Intake & Output 03/23 1600 03/23 0800 03/23 0000 03/22 1600 03/22 0800 03/22 0000 Intake Total 920 Output Total 400 Balance 520 Intake, IV 800 Intake, Oral 120 Output, Urine 400 Patient 68.039 kg Weight Weight Estimated Measurement Method Physical Exam: General: elderly lady, no apparent distress HEENT: NCAT, NO JVD Heart: s1s2, RRR, 2/6 soft pansystolic murmur at left lower sternal border Lungs: CTA b/l Abd: soft, nt Ext: no peripheral edema Labs/Praneeth Results: Laboratory Tests 03/23 03/23 03/23 0600 0600 0429 Chemistry Sodium (137 - 145 mmol/L) Cancelled 140 Potassium (3.5 - 5.1 mmol/L) Cancelled 5.3 H Chloride (98 - 107 mmol/L) Cancelled 102 Carbon Dioxide (22 - 30 mmol/L) Cancelled 34 H Anion Gap (5 - 16) Cancelled 4 L BUN (7 - 17 mg/dL) Cancelled 24 H Creatinine (0.5 - 1.0 mg/dL) Cancelled 0.7 Estimated GFR (>60 ml/min) > 60 BUN/Creatinine Ratio (7 - 25 %) Cancelled 34.3 H Troponin I (< 0.11 ng/ml) 0.13 *H 0.12 *H Hematology CBC w Diff Cancelled MAN DIFF ORDERED WBC (4.8 - 10.8 /CUMM) Cancelled 9.9 RBC (4.20 - 5.40 /CUMM) Cancelled 3.24 L Hgb (12.0 - 16.0 G/DL) Cancelled 9.7 L Hct (37 - 47 %) Cancelled 30.1 L MCV (81.0 - 99.0 FL) Cancelled 93.0 MCH (27.0 - 31.0 PG) Cancelled 30.0 MCHC (33.0 - 37.0 G/DL) Cancelled 32.2 L RDW (11.5 - 14.5 %) Cancelled 15.4 H Plt Count (130 - 400 /CUMM) Cancelled 322 MPV (7.4 - 10.4 FL) Cancelled 7.6 Gran % (42.2 - 75.2 %) 84.0 H Lymphocytes % (20.5 - 51.1 %) 8.9 L Monocytes % (1.7 - 9.3 %) 4.0 Eosinophils % (0 - 5 %) 2.5 Basophils % (0.0 - 2.0 %) 0.6 Absolute Granulocytes (1.4 - 6.5 /CUMM) 8.3 H Segmented Neutrophils (42.2 - 75.2 %) 84 H Absolute Lymphocytes (1.2 - 3.4 /CUMM) 0.9 L Lymphocytes (20.5 - 51.1 %) 8 L Monocytes (1.7 - 9.3 %) 4 Absolute Monocytes (0.10 - 0.60 /CUMM) 0.4 Eosinophils (0 - 5.0 %) 4 Absolute Eosinophils (0.0 - 0.7 /CUMM) 0.2 Absolute Basophils (0.0 - 0.2 /CUMM) 0.1 Platelet Estimate (ADEQUATE) ADEQUATE Polychromasia 1+ Hypochromic-Microcytic 1+ Poikilocytosis 1+ Basophilic Stippling SLIGHT Ovalocytes 1+ Other Body Source Fld Total RBCs Counted (%) 100 03/22 1718 Blood Gas pH (7.35 - 7.45 PH) 7.34 L pCO2 (35 - 45 TORR) 60 *H pO2 (80 - 100 TORR) 102 H HCO3 (21 - 28 MEQ/L) 32 H ABG O2 Sat (Measured) (>96.0 %) 97.0 P-50 (Temp Corrected) N Carboxyhemoglobin (1.5 - 5.0 %) 0.7 L O2 Concentration % 2.5L Temperature (97.0 - 100.0 FARH) 98.1 O2 Delivery Method NC Chemistry Sodium (137 - 145 mmol/L) 139 Cancelled Potassium (3.5 - 5.1 mmol/L) 5.2 H Cancelled Chloride (98 - 107 mmol/L) 100 Cancelled Carbon Dioxide (22 - 30 mmol/L) 34 H Cancelled Anion Gap (5 - 16) 5 Cancelled BUN (7 - 17 mg/dL) 24 H Cancelled Creatinine (0.5 - 1.0 mg/dL) 0.8 Cancelled Estimated GFR (>60 ml/min) > 60 BUN/Creatinine Ratio (7 - 25 %) 30.0 H Cancelled Troponin I (< 0.11 ng/ml) 0.09 0.08 Miscellaneous Phlebotomy Draw Site RIGHT RADIAL 03/22 03/22 1213 0910 Chemistry Sodium (137 - 145 mmol/L) 139 Potassium (3.5 - 5.1 mmol/L) 5.6 H Chloride (98 - 107 mmol/L) 99 Carbon Dioxide (22 - 30 mmol/L) 36 H Anion Gap (5 - 16) 4 L BUN (7 - 17 mg/dL) 28 H Creatinine (0.5 - 1.0 mg/dL) 0.9 Estimated GFR (>60 ml/min) 60 BUN/Creatinine Ratio (7 - 25 %) 31.1 H Glucose (65 - 99 mg/dL) 95 Lactic Acid (0.7 - 2.1 mmol/L) 0.6 L Calcium (8.4 - 10.2 mg/dL) 8.8 Troponin I (< 0.11 ng/ml) 0.07 Hematology CBC w Diff NO MAN DIFF REQ WBC (4.8 - 10.8 /CUMM) 9.9 RBC (4.20 - 5.40 /CUMM) 3.18 L Hgb (12.0 - 16.0 G/DL) 9.6 L Hct (37 - 47 %) 29.7 L MCV (81.0 - 99.0 FL) 93.2 MCH (27.0 - 31.0 PG) 30.0 MCHC (33.0 - 37.0 G/DL) 32.2 L RDW (11.5 - 14.5 %) 15.3 H Plt Count (130 - 400 /CUMM) 295 MPV (7.4 - 10.4 FL) 8.0 Gran % (42.2 - 75.2 %) 78.2 H Lymphocytes % (20.5 - 51.1 %) 12.4 L Monocytes % (1.7 - 9.3 %) 7.0 Eosinophils % (0 - 5 %) 2.0 Basophils % (0.0 - 2.0 %) 0.4 Absolute Granulocytes (1.4 - 6.5 /CUMM) 7.8 H Absolute Lymphocytes (1.2 - 3.4 /CUMM) 1.2 Absolute Monocytes (0.10 - 0.60 /CUMM) 0.7 H Absolute Eosinophils (0.0 - 0.7 /CUMM) 0.2 Absolute Basophils (0.0 - 0.2 /CUMM) 0 Toxicology Urine Opiates Screen (>2000 NG/ML) < 100 Methadone Screen (>300 NG/ML) < 40 Barbiturate Screen (>200 NG/ML) < 60 Ur Phencyclidine Scrn (>25 NG/ML) < 6.00 Amphetamines Screen (>1000 NG/ML) < 100 U Benzodiazepines Scrn (>200 NG/ML) < 85 Urine Cocaine Screen (>300 NG/ML) < 50 Urine Cannabis Screen (>50 NG/ML) < 5.00 Urines Urine Color (YEL,AMB,STR) STRAW Urine Clarity (CLEAR) HAZY H Urine pH (5.0 - 8.0) 6.0 Ur Specific [place] (1.001 - 1.035) 1.015 Urine Protein (NEG,<30 MG/DL) NEG Urine Ketones (NEG) NEG Urine Nitrite (NEG) NEG Urine Bilirubin (NEG) NEG Urine Urobilinogen (0.1 - 1.0 EU/dl) 0.2 Ur Leukocyte Esterase (NEG) TRACE H Ur Microscopic SEDIMENT EXAMINED Urine RBC (0 - 5 /HPF) RARE Urine WBC (0 - 2 /HPF) 1-3 H Ur Epithelial Cells (NONE,FEW) MANY H Urine Bacteria (NEG/NONE) RARE H Hyaline Casts (0/LPF) RARE H Granular Casts (NONE /LPF) RARE H Micro UA Comment BUDDING YEAST H Urine Hemoglobin (NEG) NEG Urine Glucose (N MG/DL) NEG Diagnostic Data EKG Results Personally reviewed, normal sinus rhythm, no ST/T abnormality CXR Results Head CT:No acute intracranial pathology. Assessment/Plan Assessment/Plan 87-year-old female PMH COPD on home O2, c.diff, OA, PVD, HLD who was sent from skilled nursing after being found unresponsive and hypoxic. Patient was found to have elevated troponin, cardiology consult called. Patient is a poor historian, but denies chest pain or other cardiac symptoms. Troponin peaked at 0.13 and has downtrended. No ischemic changes on ECG. As per clinical presentation, this is an unlikely ACS. However patient has significant risk factors and did have significant troponin elevation earlier this month and it was unclear what if any workup was done for her. Plan: Please obtain records from [facility], specifically what if any ischemic workup is done for her Continue with aspirin, statin Would obtain transthoracic echocardiogram Consult Acknowledgment - Thank you for your consult request.
[2018-03-23 17:29] VITALS: BP 158/84
--- NOTE | 2018-03-23 21:50 | ECHOCARDIOGRAM REPORT ---
PILI FREY Age: 87 : 1930 Gender: F Exam Date: 03/23/2018 18:39 Exam Location: [address] Ht (in): 62 Wt (lb): 150 BSA: 1.74 BP: 148 / 60 Ordering Physician: Mallorie Morley MD Referring Physician: Jeffrey Benjamin MD Technologist: Nishi Jo [facility] Room Number: 174-01 Indications: Chest pain Rhythm: Technical Quality: Technically difficult study FINDINGS Left Ventricle Left ventricular cavity size normal. Left ventricular wall thickness mildly increased. No obvious regional wall motion abnormalities. Left ventricular ejection fraction is estimated at > 55 %. Right Ventricle Normal right ventricular size and function. Right Atrium Normal right atrial size. Left Atrium Normal left atrial size. Mitral Valve Moderate mitral annular calcification. Trace mitral regurgitation. Aortic Valve No aortic stenosis. Trileaflet aortic valve. Thickened aortic valve without stenosis. Tricuspid Valve Tricuspid valve not well visualized, grossly normal. Trace tricuspid regurgitation. Unable to estimate the right ventricular systolic pressure. Pulmonic Valve Pulmonic valve not well visualized. Pericardium No pericardial effusion. Great Vessels Normal size aortic root. CONCLUSIONS Technically difficult study. Left ventricular cavity size normal. Left ventricular wall thickness mildly increased. No obvious regional wall motion abnormalities. Left ventricular ejection fraction is estimated at > 55 %. Normal right ventricular size and function. Thickened aortic valve without stenosis. Unable to estimate the right ventricular systolic pressure. No pericardial effusion. Terry Romero M.D. (Electronically Signed) Final Date: 23 March 2018 21:46 MEASUREMENTS (Male / Female) Normal Values 2D ECHO LV Diastolic Diameter PLAX 3.2 cm 4.2 - 5.9 / 3.9 - 5.3 cm LV Systolic Diameter PLAX 1.9 cm 2.1 - 4.0 cm LV Fractional Shortening PLAX 40.6 % 25 - 46 % LV Ejection Fraction 2D Teich 72.7 % IVS Diastolic Thickness 1.4 cm LVPW Diastolic Thickness 1.3 cm LV Relative Wall Thickness 0.8 RV Internal Dim ED PLAX 2.1 cm 1.9 - 3.8 cm LVOT Diameter 1.8 cm Aortic Root Diameter 2.8 cm LA Systolic Diameter LX 2.8 cm 3.0 - 4.0 / 2.7 - 3.8 cm LA Volume 17.0 cm 18 - 58 / 22 - 52 cm Ascending Aorta Diameter 3.1 cm DOPPLER AV Peak Velocity 207.0 cm/s AV Peak Gradient 17.1 mmHg AV Mean Velocity 125.0 cm/s AV Mean Gradient 7.0 mmHg AV Velocity Time Integral 39.0 cm LVOT Peak Velocity 133.0 cm/s LVOT Peak Gradient 7.1 mmHg LVOT Mean Velocity 93.6 cm/s LVOT Mean Gradient 4.0 mmHg LVOT Velocity Time Integral 25.0 cm LVOT Stroke Volume 63.6 cm AV Area Cont Eq vti 1.6 cm AV Area Cont Eq pk 1.6 cm MV Peak Velocity 150.0 cm/s MV Peak Gradient 9.0 mmHg MV Mean Velocity 96.9 cm/s MV Mean Gradient 4.0 mmHg Mitral E Point Velocity 111.0 cm/s Mitral A Point Velocity 144.0 cm/s Mitral E to A Ratio 0.8 MV PHT Velocity 156.0 cm/s MV Deceleration Izard 852.0 cm/s MV Pressure Half Time 54.9 ms MV Area PHT 4.0 cm MV Deceleration Time 285.0 ms TR Peak Velocity 217.0 cm/s TR Peak Gradient 18.8 mmHg Right Atrial Pressure 5.0 mmHg Pulmonary Artery Systolic Pressure 23.8 mmHg Right Ventricular Systolic Pressure 23.8 mmHg PV Peak Velocity 124.0 cm/s PV Peak Gradient 6.2 mmHg PV Mean Velocity 91.6 cm/s PV Mean Gradient 4.0 mmHg PV Velocity Time Integral 27.3 cm LV E' Lateral Velocity 10.2 cm/s Mitral E to LV E' Lateral Ratio 10.9 LV E' Septal Velocity 8.2 cm/s Mitral E to LV E' Septal Ratio 13.6
[2018-03-23 22:33] VITALS: BP 100/70
[2018-03-24 06:19] VITALS: BP 132/64
--- NOTE | 2018-03-24 07:28 | PN- Housestaff ---
SatyadelonJustus 03/24/18 0728: Subjective Follow-up For: Hypoxic hypercapnic respiratory failure Subjective: Patient seen and examined sitting comfortably in bed. No complaints overnight. No acute events overnight. Patient denies any headache, dizziness, chest pain, palpitations, difficulty breathing, diaphoresis, trouble sleeping. Patient says she wants to be taken off the monitor because she is feeling better. Review of Systems Constitutional: Reports: see HPI. Objective Last 24 Hrs of Vital Signs/I&O Vital Signs Date Time Temp Pulse Resp B/P B/P Pulse O2 O2 Flow FiO2 Mean Ox Delivery Rate 03/24 1438 98.2 70 20 120/60 94 Nasal 1.0L Cannula 03/24 1430 99 Nasal 1.0L Cannula 03/24 1146 Nasal 2.0L Cannula 03/24 0944 95 Nasal 2.0L Cannula 03/24 0800 Nasal 2.0L Cannula 03/24 0619 98.4 78 18 132/64 98 Nasal Cannula 03/24 0000 Nasal 2.0L Cannula 03/23 2233 98.1 85 18 100/70 95 Nasal Cannula 03/23 1842 Nasal 2.0L Cannula 03/23 1749 100 Nasal 2.0L Cannula 03/23 1729 98.1 82 18 158/84 100 Nasal 2.0L Cannula 03/23 1553 98.7 86 30 148/60 99 Nasal 1.0L Cannula Intake & Output 03/24 1600 03/24 0800 03/24 0000 Intake Total 120 120 Output Total 400 275 Balance -400 -155 120 Intake, Oral 120 120 Output, Urine 400 275 Patient 149 lb Weight Weight Bed scale Measurement Method Physical Exam General Appearance: Oriented X3, No Acute Distress Skin Temp/Moisture Exam: Warm/Dry HEENT: Atraumatic, PERRLA, EOMI Neck: Supple Cardiovascular: Regular Rate, Normal S1, Normal S2 Lungs: Slight bilateral wheezing Abdomen: Soft, No Tenderness Neurological: Normal Gait, Normal Speech Extremities: No Edema, Normal Pulses Current Medications: Current Medications Sig/Hans Start time Last Medication Dose Route Stop Time Status Admin Acetaminophen 650 MG .STK-MED ONE 03/24 07 DC PO 03/24 07 Acetaminophen 650 MG Q6P PRN 03/22 1530 AC 03/24 PO 0722 Albuterol Sulfate 3 ML TID 03/23 2100 AC 03/24 INH 1429 Albuterol Sulfate 3 ML Q6 PRN 03/22 1530 AC 03/22 INH 2105 Aspirin Buffered 81 MG DAILY 03/23 0900 AC 03/24 PO 0722 Bisacodyl 10 MG DAILY NEEDED PRN 03/22 1600 AC NH Enoxaparin Sodium 30 MG DAILY 03/23 0900 AC 03/24 SC 0723 Ipratropium Destrehan 2.5 ML TID 03/23 2100 AC 03/24 INH 1429 Magnesium Hydroxide 30 ML DAILY PRN 03/22 1600 AC PO Melatonin 3 MG AT BEDTIME 03/22 2100 AC 03/23 PO 205 Methylprednisolone 40 MG Q8 03/24 1400 AC 03/24 IV 1454 Pravastatin Sodium 20 MG DAILY 03/23 0900 AC 03/24 PO 0722 Sodium Chloride 1,000 ML Q10H 03/22 1430 DC 03/23 IV 0047 Last 24 Hrs of Lab/Praneeth Results Last 24 Hrs of Labs/Mics: Laboratory Tests 03/24/18 1000: D-Dimer High Sensitivty 787 H 03/24/18 0625: Anion Gap 3 L, Estimated GFR > 60, BUN/Creatinine Ratio 30.0 H, CBC w Diff NO MAN DIFF REQ, RBC 2.91 L, MCV 93.3, MCH 30.1, MCHC 32.3 L, RDW 16.1 H, MPV 8.3, Gran % 77.5 H, Lymphocytes % 12.5 L, Monocytes % 7.1, Eosinophils % 2.6, Basophils % 0.3, Absolute Granulocytes 7.3 H, Absolute Lymphocytes 1.2, Absolute Monocytes 0.7 H, Absolute Eosinophils 0.2, Absolute Basophils 0 03/23/18 1750: Troponin I 0.09 Assessment/Plan Assessment: Patient is 87-year-old from [facility] with PMH of COPD on 2 L O2, C. difficile, OA, anxiety, PVD, HLD, who presented to after episode of unresponsiveness most likely secondary to acute hypoxic hypercarbic respiratory failure. Problem list: 1. Previous unresponsive episode -Unable to determine etiology of unresponsive episode at this time. High suspicion for hypoxic episode causing temporary unresponsiveness 2. 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 20 mg for 3 days as per pulmonology 3. Recent hip surgery -Lower extremity venous Doppler (elevated d-dimer and recent surgery not on anticoagulation during admission) -[place] removed -Physical therapy to help mobilize patient 4. Abnormal troponin -Follow-up cardiology regarding further ischemic workup Full code Heart healthy diet DVT prophylaxis Problem List: 1. Acute respiratory failure with hypoxia and hypercapnia Pain Ratin Pain Location: None Pain Goal: Remain pain free Pain Plan: Tylenol Tomorrow's Labs & Rationales: BEP, CBC Tigist SALDAÑA,Sandhya 03/24/18 1126: Attending MD Review Statement Attending Statement Attending MD Statement: examined this patient, discuss w/resident/PA/MIXING AND DISPENSING SUPERVISOR, agreed w/resident/PA/MIXING AND DISPENSING SUPERVISOR, reviewed EMR data (avail), discussed with nursing, discussed with case mgmt, amended to note Attending Assessment/Plan: Patient seen and examined. Lying in bed. Not in acute distress. No issues overnight. No events on telemetry monitoring. She is maintaining saturation on 2 L of oxygen. She is hemodynamically stable. Denies any shortness of breath presently. On examination she is also in respiratory distress. She has no jugular venous distention. Heart sounds are regular. She has fair entry bilaterally with diffuse rhonchi. She has no peripheral edema. Problems: 1. Unresponsive episode 2. Acute on chronic hypoxic and hypercapnic respiratory failure 3. Recent non-ST elevation myocardial infarction following hip surgery at [facility]. 4. Recent acute pulmonary edema following hip surgery at [facility]. 5. Abnormal troponins Plan: -Exact etiology of unresponsive episode is unknown at this time. She however has several potential causative factors. She was hypoxic during the episode and noted to be more hypercapnic when she arrived in the emergency room. She is on trazodone for anxiety. She had recent cardiac events. -In view of her current wheezing we will continue bronchodilator therapy and start patient on Solu-Medrol 40 mg IV every 8 hours. This was discussed with her wood gang sawyer Isaac Kimbrough MD. -D-dimer is elevated. Age-adjusted levels however appears normal. Will follow up with the pulmonology service regarding need for CT angiogram to rule out pulmonary embolism. Obtain lower extremity venous Dopplers for now. Confirmed from prison if she is on any DVT prophylaxis -Echocardiogram during this admission shows no obvious wall motion abnormalities. EF is normal. No significant valvular disease noted. Right ventricular systolic pressure could not be estimated. -Follow-up with the cardiology service regarding need for further ischemic workup. No further ischemic workup was done at [facility] beyond her echocardiogram. -Physical therapy to mobilize patient.
[2018-03-24 07:53] LABS: ABSOLUTE BASOPHIL COUNT 0 /CUMM (0.0-0.2); ABSOLUTE EOSINOPHIL COUNT 0.2 /CUMM (0.0-0.7); ABSOLUTE GRANULOCYTE CT 7.3 /CUMM (1.4-6.5); ABSOLUTE LYMPH COUNT 1.2 /CUMM (1.2-3.4); ABSOLUTE MONOCYTE COUNT 0.7 /CUMM (0.10-0.60); BASOPHIL % 0.3 % (0.0-2.0); EOSINOPHIL % 2.6 % (0-5); GRANULOCYTE % 77.5 % (42.2-75.2); HEMATOCRIT 27.1 % (37-47); MEAN CORPUSCULAR HGB 30.1 PG (27.0-31.0); MEAN CORPUSCULAR HGB CONC 32.3 G/DL (33.0-37.0); MEAN CORPUSCULAR VOLUME 93.3 FL (81.0-99.0); MEAN PLATELET VOLUME 8.3 FL (7.4-10.4); PLATELET COUNT 290 /CUMM (130-400); RBC DISTRIBUTION WIDTH 16.1 % (11.5-14.5); RED BLOOD CELL CT 2.91 /CUMM (4.20-5.40); WHITE BLOOD CELL COUNT 9.4 /CUMM (4.8-10.8)
--- NOTE | 2018-03-24 10:36 | PN- Cardiology ---
Subjective Subjective: Patient feels well. She denies chest pain or shortness of breath. Review of Systems: Eyes no blurred or double vision Ears no deafness or ringing Nose and throat no recurrent sinusitis Lungs per history of present illness Heart per history of present illness Abdomen no nausea vomiting Musculoskeletal occasional muscle and joint pains Psych no anxiety or depression Neuro without recurrent headache or seizures Endocrine no heat or cold intolerance Objective Vital Signs and I&Os Vital Signs Date Time Temp Pulse Resp B/P B/P Pulse O2 O2 Flow FiO2 Mean Ox Delivery Rate 03/24 0944 95 Nasal 2.0L Cannula 03/24 0619 98.4 78 18 132/64 98 Nasal Cannula 03/24 0000 Nasal 2.0L Cannula 03/23 2233 98.1 85 18 100/70 95 Nasal Cannula 03/23 1842 Nasal 2.0L Cannula 03/23 1749 100 Nasal 2.0L Cannula 03/23 1729 98.1 82 18 158/84 100 Nasal 2.0L Cannula 03/23 1553 98.7 86 30 148/60 99 Nasal 1.0L Cannula Intake & Output 03/24 1600 03/24 0800 03/24 0000 03/23 1600 03/23 0800 03/23 0000 Intake Total 120 120 920 Output Total 275 400 Balance -155 120 520 Intake, IV 800 Intake, Oral 120 120 120 Output, Urine 275 400 Patient 149 lb Weight Weight Bed scale Measurement Method Physical Exam: Patient is a well-developed well-nourished female appearing in no acute distress HEENT is unremarkable Neck is supple there is no JVD Lungs decreased air entry bilaterally Heart regular rhythm S1 and S2 are normal no murmurs gallops or rubs Abdomen bowel sounds positive Extremities without edema Neuro without focal deficits Skin without lesions Lymph no adenopathy Psych she does appear anxious Current Medications: Current Medications Sig/Hans Start time Last Medication Dose Route Stop Time Status Admin Acetaminophen 650 MG Q6P PRN 03/22 1530 AC 03/24 PO 0722 Albuterol Sulfate 3 ML TID 03/23 2100 AC 03/24 INH 0935 Albuterol Sulfate 3 ML Q6 PRN 03/22 1530 AC 03/22 INH 2105 Aspirin Buffered 81 MG DAILY 03/23 09 AC 03/24 PO 0722 Bisacodyl 10 MG DAILY NEEDED PRN 03/22 1600 AC ND Enoxaparin Sodium 30 MG DAILY 03/23 900 AC 03/24 SC 0723 Ipratropium [place] 2.5 ML TID 03/23 2100 AC 03/24 INH 0935 Magnesium Hydroxide 30 ML DAILY PRN 03/22 1600 AC PO Melatonin 3 MG AT BEDTIME 03/22 2100 AC 03/23 PO 205 Pravastatin Sodium 20 MG DAILY 03/23 0900 AC 03/24 PO 0722 Sodium Chloride 1,000 ML Q10H 03/22 1430 DC 03/23 IV 0047 Results Last 48 Hrs of Labs/Mics: Laboratory Tests 03/24/18 1000: D-Dimer High Sensitivty 787 H 03/24/18 0625: Anion Gap 3 L, Estimated GFR > 60, BUN/Creatinine Ratio 30.0 H, CBC w Diff NO MAN DIFF REQ, RBC 2.91 L, MCV 93.3, MCH 30.1, MCHC 32.3 L, RDW 16.1 H, MPV 8.3, Gran % 77.5 H, Lymphocytes % 12.5 L, Monocytes % 7.1, Eosinophils % 2.6, Basophils % 0.3, Absolute Granulocytes 7.3 H, Absolute Lymphocytes 1.2, Absolute Monocytes 0.7 H, Absolute Eosinophils 0.2, Absolute Basophils 0 03/23/18 1750: Troponin I 0.09 03/23/18 0600: Troponin I 0.13 *H 03/23/18 0600: Sodium Cancelled, Potassium Cancelled, Chloride Cancelled, Carbon Dioxide Cancelled, Anion Gap Cancelled, BUN Cancelled, Creatinine Cancelled, BUN/ Creatinine Ratio Cancelled, CBC w Diff Cancelled, WBC Cancelled, RBC Cancelled, Hgb Cancelled, Hct Cancelled, MCV Cancelled, MCH Cancelled, MCHC Cancelled, RDW Cancelled, Plt Count Cancelled, MPV Cancelled 03/23/18 0429: Anion Gap 4 L, Estimated GFR > 60, BUN/Creatinine Ratio 34.3 H, Troponin I 0.12 *H, CBC w Diff MAN DIFF ORDERED, RBC 3.24 L, MCV 93.0, MCH 30.0, MCHC 32.2 L, RDW 15.4 H, MPV 7.6, Gran % 84.0 H, Lymphocytes % 8.9 L, Monocytes % 4.0, Eosinophils % 2.5, Basophils % 0.6, Absolute Granulocytes 8.3 H, Segmented Neutrophils 84 H, Absolute Lymphocytes 0.9 L, Lymphocytes 8 L, Monocytes 4, Absolute Monocytes 0.4, Eosinophils 4, Absolute Eosinophils 0.2, Absolute Basophils 0.1, Platelet Estimate ADEQUATE, Polychromasia 1+, Hypochromic- Microcytic 1+, Poikilocytosis 1+, Basophilic Stippling SLIGHT, Ovalocytes 1+, Fld Total RBCs Counted 100 03/22/18 2214: Anion Gap 5, Estimated GFR > 60, BUN/Creatinine Ratio 30.0 H, Troponin I 0.09 03/22/181953: Sodium Cancelled, Potassium Cancelled, Chloride Cancelled, Carbon Dioxide Cancelled, Anion Gap Cancelled, BUN Cancelled, Creatinine Cancelled, BUN/ Creatinine Ratio Cancelled 03/22/181939: pH 7.34 L, pCO2 60 *H, pO2 102 H, HCO3 32 H, ABG O2 Sat (Measured) 97.0, P-50 (Temp Corrected) N, Carboxyhemoglobin 0.7 L, O2 Concentration % 2.5L, Temperature 98.1, O2 Delivery Method NC, Phlebotomy Draw Site RIGHT RADIAL 03/22/18 1718: Troponin I 0.08 03/22/18 1213: Urine Opiates Screen < 100, Methadone Screen < 40, Barbiturate Screen < 60, Ur Phencyclidine Scrn < 6.00, Amphetamines Screen < 100, U Benzodiazepines Scrn < 85, Urine Cocaine Screen < 50, Urine Cannabis Screen < 5.00, Urine Color STRAW, Urine Clarity HAZY H, Urine pH 6.0, Ur Specific [place] 1.015, Urine Protein NEG, Urine Ketones NEG, Urine Nitrite NEG, Urine Bilirubin NEG, Urine Urobilinogen 0.2, Ur Leukocyte Esterase TRACE H, Ur Microscopic SEDIMENT EXAMINED, Urine RBC RARE, Urine WBC 1-3 H, Ur Epithelial Cells MANY H, Urine Bacteria RARE H, Hyaline Casts RARE H, Granular Casts RARE H, Micro UA Comment BUDDING YEAST H, Urine Hemoglobin NEG, Urine Glucose NEG Telemetry personally reviewed sinus rhythm Recent Imaging Studies: Echocardiogram CONCLUSIONS Technically difficult study. Left ventricular cavity size normal. Left ventricular wall thickness mildly increased. No obvious regional wall motion abnormalities. Left ventricular ejection fraction is estimated at > 55 %. Normal right ventricular size and function. Thickened aortic valve without stenosis. Unable to estimate the right ventricular systolic pressure. No pericardial effusion. Terry Romero M.D. Assessment/Plan Assessment/Plan 1. Episode of unresponsiveness with hypoxia most likely secondary to exacerbation of her COPD 2. Elevated troponin secondary to demand ischemia there are no EKG changes and her echocardiogram demonstrated ejection fraction of 55% without wall motion abnormalities 3. Osteoarthritis 4. Peripheral vascular disease Recommendations 1. I would continue her current medications 2. In reviewing the records on [facility] it appears that she has an appointment with her instrumentation supervisor Dr. Teresa Baron tomorrow. She has not had a previous cardiac evaluation. If she remains hospitalized she will need to reschedule that because she should have an ischemic workup as an outpatient. If she prefers to remain in the area we would be happy to see her as an outpatient. Continue telemetry? Yes
--- NOTE | 2018-03-24 11:24 | Discharge Summary ---
Visit Information Visit Dates Admission Date: 03/22/18 Discharge Date: 03/25/18 Hospital Course Course Attending Physician: Sandhya Escoto MD Primary Care Physician: Stew Hope MD Hospital Course: This is a 87 yo female currently residing at [facility] with PMH of COPD on 2L O2m hx c. diff, OA, anxiety, PVD, HLD who comes in for CC of unresponsiveness. Per [place] documentation pt was found early this morning to be difficult to rouse and pale. She was saturating 82% on her baseline 2L, her O2 was increased to 5L with good response and an ambulance was called. Notably earlier this month pt came to for hip fracture and was found to have troponin 1.42 and was transferred out for further management. Pt is unable to give any further history and can't tell me if she was treated for an VA. After surgery for her hip she was sent to [facility] for rehab. Per records her stay has been uneventful and pt did not receive any narcotic medications today. When asked why patient was sent to she states "because I was all agitated and acting funny." She denies any worsening SOB, CP, palpitations, change in vision or strength, N/V/D or recent illness. She states that her l. leg is recovering well. Hospital course Patient was admitted for hypoxic, hypercarbic respiratory failure may be related to her recent tramadol use and also mild COPD exacerbation. Patient was treated with supplemental oxygen. We continued all her home medications including her inhalers, statin, aspirin. Patient had elevated troponins with no EKG changes which was due to type II VA. Cardiology was on board who suggested to review her old records at [place] and advised to follow-up with cardiology as outpatient for further ischemic workup. Patient also got her joaquina removed from her previous ORIF done on March 11. We called Gabriela who confirmed that patient can weight-bear and walk with help of walker.Patient is also suposed to be on Lovenox for 35 days after surgery, patient discharged on Lovenox. She was evaluated by physical therapy was suggested short-term rehab. She will have to follow up with her weather clerk(had an appointment on 2017 which she had to miss). Will also avoid Opioid pain medications in the future. Allergies: Coded Allergies: NO KNOWN ALLERGIES (01/04/11) Pertinent Lab Results: Head CT IMPRESSION: No acute intracranial pathology. Echocardiogram Technically difficult study. Left ventricular cavity size normal. Left ventricular wall thickness mildly increased. No obvious regional wall motion abnormalities. Left ventricular ejection fraction is estimated at > 55 %. Normal right ventricular size and function. Thickened aortic valve without stenosis. Unable to estimate the right ventricular systolic pressure. No pericardial effusion. Disposition Summary Disposition Principal Diagnosis: Acute hypoxic hypercarbic respiratory failure secondary due to COPD exacerbation Additional Diagnosis: Elevated troponin-type II VA Discharge Disposition: SNF Discharge Instructions General Discharge Information Code Status: Full Code Patient's Diet: Heart Healthy Patient's Activity: As tolerated Follow-Up Instructions/Appts: Please follow up wit your PC within a week after discharge. Please follow up with your weather clerk within a week after discharge. Please avoid Opioid pain medications. Medications at Discharge Discharge Medications: Continue taking these medications: Pravastatin Sodium (Pravachol) 40 MG TABLET 1 Tablet ORAL DAILY Comments: Last Taken:03/25/18 Time:0900 Sennosides/Docusate Sodium (Senna Plus Tablet) 8.6 MG-50 MG TABLET 2 Tablet ORAL TWICE DAILY Tiotropium [place] (Spiriva) 18 MCG CAP.W.DEV 1 Capsule Inhale through mouth DAILY Aspirin (Ecotrin*) 81 MG TABLET.DR 1 Tablet ORAL DAILY Comments: Last Taken:03/25/18 Time:0900 Polyethylene Glycol 3350 (Miralax) 17 GRAM POWD.PACK 1 Packet ORAL DAILY Instructions: dissolve in water Melatonin (Melatonin) 3 MG TABLET 1 Tablet ORAL TAKE AT BEDTIME Ipratropium/Albuterol Sulfate (Iprat-Albut 0.5-3(2.5) MG/3 Ml) 0.5 MG-3 MG (2.5 MG BASE)/3 ML AMPUL.NEB 1 VIAL Inhale through mouth THREE TIMES DAILY Magnesium Hydroxide (Milk Of Magnesia) 400 MG/5 ML ORAL.SUSP 30 Milliliters ORAL DAILY as needed for CONSTIPATION Bisacodyl (Bisacodyl) 10 MG SUPP.RECT 1 Suppository RECTAL As Directed as needed for CONSTIPATION Na Phos,M-B/Na Phos,Di-Ba (Fleet Enema) 19 GRAM-7 GRAM/118 ML ENEMA 1 Enema RECTAL As Directed as needed for CONSTIPATION Acetaminophen (Acephen) 650 MG SUPP.RECT 1 SUPPOSITORY RECTALLY Q4H as needed for PAIN/TEMP Albuterol Sulfate (Albuterol Sulfate) 2.5 MG/3 ML (0.083 %) VIAL.NEB 1 Vial Inhale Solution EVERY 4 HOURS NEEDED as needed for SOB/WHEEZING Trazodone HCl (Trazodone HCl) 50 MG TABLET 25 Milligram ORAL Q8H as needed for ANXIETY Acetaminophen (Pain Reliever) 325 MG TABLET 3 Tablet ORAL Q6H as needed for PAIN Start taking the following new medications: Enoxaparin Sodium (Lovenox) 30 MG/0.3 ML SYRINGE 1 Syringe SC DAILY Qty = 21 No Refills Comments: Last Taken:03/25/18 Time:0900 Prednisone (Prednisone) 20 MG TABLET 20 Milligram ORAL DAILY Qty = 1 No Refills Comments: Last Taken:03/25/18 Time:0900 Copies To: lynda barrientos; stew lu
--- NOTE | 2018-03-24 12:52 | ULTRASOUND REPORT ---
EXAMINATION: US TRIPLEX OF LOWER EXTREMITIES, BILATERAL CLINICAL INFORMATION: Recent surgery. Bilateral lower extremity DVT study is requested. COMPARISON: None TECHNIQUE: Color-flow triplex imaging with spectral analysis and compression Doppler were performed on the lower extremities. FINDINGS: Respiratory variation, normal compression and augmented flow are noted throughout the lower extremities. The visualized common femoral vein, superficial femoral vein, profunda femoral vein, popliteal vein and midcalf peroneal and posterior tibial venous segments show no evidence of deep venous thrombosis. Please note that the right-sided calf veins are not well-visualized. There is no Galindo's cyst. IMPRESSION: No evidence of deep venous thrombosis involving the bilateral lower extremities.
[2018-03-24 14:38] VITALS: BP 120/60
--- NOTE | 2018-03-24 15:48 | Cons- Pulmonary ---
General Information and HPI Consulting Request Date of Consult: 03/24/18 Requested By: Pt and med team History of Present Illness: 87-year-old female PMH COPD on home O2, c.diff, OA, PVD, HLD who was sent from [facility] after being found unresponsive and hypoxic and sig hypercarbic Patient was found to have elevated troponin, recently she had a hip fracture following which she had acute pulmonary edema and elevated troponin. She did have an echocardiogram which did not reveal any significant abnormality other than mild wall motion abnormality. When she came in she did have significantly elevated PCO2. Patient was on tramadol. Now that seems to be better. Patient denies current chest pain, dyspnea, palpitations, lightheadedness/ dizziness. Patient reports that she had some mild muscle soreness in her chest after physical therapy last week, but denies associated palpitations, dyspnea. Patient denies PND/orthopnea. Patient denies fever/chills, cough, abdominal pain, diarrhea/constipation. Allergies/Medications Allergies: Coded Allergies: NO KNOWN ALLERGIES (01/04/11) Home Med List: Acetaminophen (Acephen) 650 MG SUPP.RECT 1 SUPP [place] Q4H PRN PAIN/TEMP ( Reported) Acetaminophen (Pain Reliever) 325 MG TABLET 3 TAB PO Q6H PRN PAIN (Reported) Albuterol Sulfate 2.5 MG/3 ML (0.083 %) VIAL.NEB 1 Vial INH/MIGUELINA Q4P PRN SOB/ WHEEZING (Reported) Aspirin (Ecotrin*) 81 MG TABLET.DR 1 TAB PO DAILY HEART/BLOOD (Reported) Bisacodyl 10 MG SUPP.RECT 1 SUP RC AD PRN CONSTIPATION (Reported) Ipratropium/Albuterol Sulfate (Iprat-Albut 0.5-3(2.5) MG/3 Ml) 0.5 MG-3 MG (2.5 MG BASE)/3 ML AMPUL.NEB 1 VIAL INH TID RESP. (Reported) Magnesium Hydroxide (Milk Of Magnesia) 400 MG/5 ML ORAL.SUSP 30 ML PO DAILY PRN CONSTIPATION (Reported) Melatonin 3 MG TABLET 1 TAB PO QHS SUPPLEMENT (Reported) Na Phos,M-B/Na Phos,Di-Ba (Fleet Enema) 19 GRAM-7 GRAM/118 ML ENEMA 1 E RC AD PRN CONSTIPATION (Reported) Polyethylene Glycol 3350 (Miralax) 17 GRAM POWD.PACK 1 PAC PO DAILY GI ( Reported) dissolve in water Pravastatin Sodium (Pravachol) 40 MG TABLET 1 TAB PO DAILY CHOL (Reported) Sennosides/Docusate Sodium (Senna Plus Tablet) 8.6 MG-50 MG TABLET 2 TAB PO BID GI (Reported) Tiotropium [place] (Spiriva) 18 MCG CAP.W.DEV 1 CAP INH DAILY COPD (Reported) Trazodone HCl 50 MG TABLET 25 MG PO Q8H PRN ANXIETY (Reported) Review of Systems Review of Systems Constitutional: Reports: see HPI. 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 Surgical History Surgical History: 1 Psychosocial History Services at Home: Oxygen Smoking Status: Former Smoker ETOH Use: denies use Illicit Drug Use: denies illicit drug use Exam & Diagnostic Data Last 24 Hrs of Vital Signs/I&O Vital Signs Date Time Temp Pulse Resp B/P B/P Pulse O2 O2 Flow FiO2 Mean Ox Delivery Rate 03/24 1438 98.2 70 20 120/60 94 Nasal 1.0L Cannula 03/24 1430 99 Nasal 1.0L Cannula 03/24 1146 Nasal 2.0L Cannula 03/24 0944 95 Nasal 2.0L Cannula 03/24 0800 Nasal 2.0L Cannula 03/24 0619 98.4 78 18 132/64 98 Nasal Cannula 03/24 0000 Nasal 2.0L Cannula 03/23 2233 98.1 85 18 100/70 95 Nasal Cannula 03/23 1842 Nasal 2.0L Cannula 03/23 1749 100 Nasal 2.0L Cannula 03/23 1729 98.1 82 18 158/84 100 Nasal 2.0L Cannula 03/23 1553 98.7 86 30 148/60 99 Nasal 1.0L Cannula Intake & Output 03/24 1600 03/24 0800 03/24 0000 Intake Total 120 120 Output Total 400 275 Balance -400 -155 120 Intake, Oral 120 120 Output, Urine 400 275 Patient 149 lb Weight Weight Bed scale Measurement Method Last 48 Hrs of Labs/Praneeth: Laboratory Tests 03/24/18 1000: D-Dimer High Sensitivty 787 H 03/24/18 0625: Anion Gap 3 L, Estimated GFR > 60, BUN/Creatinine Ratio 30.0 H, CBC w Diff NO MAN DIFF REQ, RBC 2.91 L, MCV 93.3, MCH 30.1, MCHC 32.3 L, RDW 16.1 H, MPV 8.3, Gran % 77.5 H, Lymphocytes % 12.5 L, Monocytes % 7.1, Eosinophils % 2.6, Basophils % 0.3, Absolute Granulocytes 7.3 H, Absolute Lymphocytes 1.2, Absolute Monocytes 0.7 H, Absolute Eosinophils 0.2, Absolute Basophils 0 03/23/18 1750: Troponin I 0.09 03/23/18 0600: Troponin I 0.13 *H 03/23/18 0600: Sodium Cancelled, Potassium Cancelled, Chloride Cancelled, Carbon Dioxide Cancelled, Anion Gap Cancelled, BUN Cancelled, Creatinine Cancelled, BUN/ Creatinine Ratio Cancelled, CBC w Diff Cancelled, WBC Cancelled, RBC Cancelled, Hgb Cancelled, Hct Cancelled, MCV Cancelled, MCH Cancelled, MCHC Cancelled, RDW Cancelled, Plt Count Cancelled, MPV Cancelled 03/23/18 0429: Anion Gap 4 L, Estimated GFR > 60, BUN/Creatinine Ratio 34.3 H, Troponin I 0.12 *H, CBC w Diff MAN DIFF ORDERED, RBC 3.24 L, MCV 93.0, MCH 30.0, MCHC 32.2 L, RDW 15.4 H, MPV 7.6, Gran % 84.0 H, Lymphocytes % 8.9 L, Monocytes % 4.0, Eosinophils % 2.5, Basophils % 0.6, Absolute Granulocytes 8.3 H, Segmented Neutrophils 84 H, Absolute Lymphocytes 0.9 L, Lymphocytes 8 L, Monocytes 4, Absolute Monocytes 0.4, Eosinophils 4, Absolute Eosinophils 0.2, Absolute Basophils 0.1, Platelet Estimate ADEQUATE, Polychromasia 1+, Hypochromic- Microcytic 1+, Poikilocytosis 1+, Basophilic Stippling SLIGHT, Ovalocytes 1+, Fld Total RBCs Counted 100 03/22/18 2214: Anion Gap 5, Estimated GFR > 60, BUN/Creatinine Ratio 30.0 H, Troponin I 0.09 03/22/18 1954: Sodium Cancelled, Potassium Cancelled, Chloride Cancelled, Carbon Dioxide Cancelled, Anion Gap Cancelled, BUN Cancelled, Creatinine Cancelled, BUN/ Creatinine Ratio Cancelled 03/22/181939: pH 7.34 L, pCO2 60 *H, pO2 102 H, HCO3 32 H, ABG O2 Sat (Measured) 97.0, P-50 (Temp Corrected) N, Carboxyhemoglobin 0.7 L, O2 Concentration % 2.5L, Temperature 98.1, O2 Delivery Method NC, Phlebotomy Draw Site RIGHT RADIAL 03/22/18 1718: Troponin I 0.08 Assessment/Plan Impression/Plan: General: elderly lady, no apparent distress HEENT: NCAT, NO JVD Heart: s1s2, RRR, 2/6 soft pansystolic murmur at left lower sternal border Lungs: bilateral wheezingl Abd: soft, nt Ext: no peripheral edema IMPRESSION This is a lady with end-stage COPD, recent hip fracture, recent pulmonary edema with elevated troponin with non-ST segment elevation MD while she was admitted to [facility], now has Acute hypercarbic and hypoxemic respiratory failure now resolved. May be related to her recent tramadol use. This seems to be better. However she does seem to have mild COPD exacerbation. Elevated troponin recently with acute pulmonary edema postoperatively after the hip fracture suggestive of ischemic heart disease. Needs further cardiology workup. Cardiology team following Recent rib fracture Less than 5 mm lung nodule needs follow-up CT but patient not to team recent delirium RECOMMENDATION Continue nebulizer Discontinue intravenous steroids Start by mouth prednisone 20 mg for 3 days Cardiology follow-up Avoid all narcotic sedatives Increase activity Will follow-up closely Repeat chest x-ray Consult Acknowledgment - Thank you for your consult request.
--- NOTE | 2018-03-24 20:50 | RADIOLOGY REPORT ---
EXAMINATION: XR CHEST CLINICAL INFORMATION: Wheezing and shortness of breath. COMPARISON: Chest x-ray 01/03/2017 TECHNIQUE: 2 views of the chest were obtained. FINDINGS: There are small bilateral pleural effusions slightly blunting the posterior costophrenic angle. This is new since prior chest x-ray 01/03/2017. The heart size is enlarged. There are calcified lesions of the aortic arch. There is no pulmonary vascular congestion. There is no infiltrate. Surgical clips at the base of the right neck. IMPRESSION: Small bilateral pleural effusions. Lungs are clear.
[2018-03-25 06:40] VITALS: BP 164/76
[2018-03-25 08:18] LABS: ABSOLUTE BASOPHIL COUNT 0 /CUMM (0.0-0.2); ABSOLUTE EOSINOPHIL COUNT 0 /CUMM (0.0-0.7); ABSOLUTE GRANULOCYTE CT 10.2 /CUMM (1.4-6.5); ABSOLUTE LYMPH COUNT 0.8 /CUMM (1.2-3.4); ABSOLUTE MONOCYTE COUNT 0.7 /CUMM (0.10-0.60); BASOPHIL % 0.1 % (0.0-2.0); EOSINOPHIL % 0 % (0-5); HEMATOCRIT 29.2 % (37-47); MEAN CORPUSCULAR HGB 29.6 PG (27.0-31.0); MEAN CORPUSCULAR HGB CONC 31.9 G/DL (33.0-37.0); MEAN CORPUSCULAR VOLUME 92.8 FL (81.0-99.0); MEAN PLATELET VOLUME 7.8 FL (7.4-10.4); PLATELET COUNT 333 /CUMM (130-400); RBC DISTRIBUTION WIDTH 15.7 % (11.5-14.5); RED BLOOD CELL CT 3.15 /CUMM (4.20-5.40); WHITE BLOOD CELL COUNT 11.7 /CUMM (4.8-10.8)
[2018-03-25 08:52] LABS: GRANULOCYTE % 87.2 % (42.2-75.2)
--- NOTE | 2018-03-25 09:02 | PN- Housestaff ---
SatyadelonJustus 03/25/18 0901: Subjective Follow-up For: Hypoxic hypercapnic respiratory failure Tele-Events Since Last Visit: NSR 71 - 91, ST 103 Subjective: Patient seen and examined sitting comfortably in bed. No distress. No acute events overnight. She says that she feels much better when compared to her admission day. She denies chest pain, palipitations, headache, SOB. She feels she is ready to be discharged. Review of Systems Constitutional: Reports: see HPI. Objective Last 24 Hrs of Vital Signs/I&O Vital Signs Date Time Temp Pulse Resp B/P B/P Pulse O2 O2 Flow FiO2 Mean Ox Delivery Rate 03/25 1442 97.6 96 18 104/58 97 03/25 1152 98.4 78 20 164/76 03/25 0937 94 Nasal 1.0L Cannula 03/25 0900 95 Nasal 1.0L Cannula 03/25 0802 97 Nasal 1.0L Cannula 03/25 0640 98.4 78 20 164/76 96 Nasal Cannula 03/25 0000 93 Nasal 1.0L Cannula Intake & Output 03/25 1600 03/25 0800 08 0000 Intake Total 400 100 50 Output Total 500 100 250 Balance -100 0 -200 Intake, Oral 400 100 50 Number 1 1 Bowel Movements Output, Urine 500 100 250 Patient 143 lb Weight Weight Bed scale Measurement Method Physical Exam General Appearance: Alert, Oriented X3, No Acute Distress Skin Temp/Moisture Exam: Warm/Dry HEENT: Atraumatic, PERRLA, EOMI Neck: Supple Cardiovascular: Regular Rate, Normal S1, Normal S2 Lungs: Slight bilateral wheeze Abdomen: Soft, No Tenderness Extremities: No Edema, Normal Pulses Assessment/Plan Assessment: Patient is 87-year-old from [place] with PMH of COPD on 2 L O2, C. difficile, OA, anxiety, PVD, HLD, who presented to after episode of unresponsiveness most likely secondary to acute hypoxic hypercarbic respiratory failure. Problem list: 1. 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 20 mg for 3 days as per pulmonology -Avoid opiates 2. Recent hip surgery -Physical therapy to help mobilize patient 3. Abnormal troponin -Follow-up cardiology outpatient regarding further ischemic workup Medically stable to be discharged back to SNF Full code Heart healthy diet DVT prophylaxis Problem List: 1. Acute respiratory failure with hypoxia and hypercapnia Pain Ratin Pain Location: N/A Pain Goal: Remain pain free Pain Plan: Tylenol Tomorrow's Labs & Rationales: None Tigist SALDAÑA,Sandhya 03/25/18 1149: Attending MD Review Statement Attending Statement Attending MD Statement: examined this patient, discuss w/resident/PA/ADULT CROSSING GUARD, agreed w/resident/PA/ADULT CROSSING GUARD, reviewed EMR data (avail), discussed with nursing, discussed with case mgmt, amended to note Attending Assessment/Plan: Patient seen and examined. Resting comfortably and not in distress. Very jovial. Feels much better compared to presentation. Denies shortness of breath this morning. Denies any chest pain. On auscultation she has adequate entry bilaterally with minimal expiratory wheezing. She was evaluated by her waste examiner today and was transitioned from intravenous to oral steroids. She appears to have had a component of COPD exacerbation and is currently doing better. This may have contributed to her syncope as well as hypercapnia and hypoxia on presentation. patient insists she was not taking strong pain medication at the long-term facility. Here she has only been prescribed Tylenol as needed. d-dimer was elevated however at age adjusted levels are normal for the patient. Lower extremity Dopplers were obtained that showed no evidence of deep vein thrombosis. Recommendations: -She is medically stable to be discharged back to long-term facility today. -Recommend avoiding opiate medications in this elderly patient. Pain control can easily be achieved with Tylenol. -Complete 3 day course of prednisone as recommended by her waste examiner. -She is to follow-up with her cardiology service as an outpatient for further cardiac workup. today. -Recommend avoiding opiate medications in this elderly patient. Pain control can easily be achieved with Tylenol. -Complete 3 day course of prednisone as recommended by her waste examiner. -She is to follow-up with her cardiology service as an outpatient for further cardiac workup.
--- NOTE | 2018-03-25 10:22 | Patient Discharge Instructions ---
Discharge Instructions General Discharge Information You were seen/treated for: Hypoxic Respiratory failure Watch for these problems: Please return to the ER in case of any difficulty breathing or altered mental status. Special Instructions: Please follow up wit your PC within a week after discharge. Please follow up with your flexographic press set up operator within a week after discharge. Please avoid Opioid pain medications. Diet Continue normal diet: Yes Activity Full Activity/No Limits: Yes Acute Coronary Syndrome Inclusion Criteria At DC or during hospital stay patient has or had the following: ACS DIAGNOSIS No Discharge Core Measures Meds if any: Prescribed or Continued at Discharge Meds if any: NOT Prescribed or Continued at Discharge Congestive Heart Failure Inclusion Criteria At DC or during hospital stay patient has or had the following: CHF DIAGNOSIS No Discharge Core Measures Meds if any: Prescribed or Continued at Discharge Meds if any: NOT Prescribed or Continued at Discharge Cerebrovascular accident Inclusion Criteria At DC or during hospital stay patient has or had the following: CVA/TIA Diagnosis No Discharge Core Measures Meds if any: Prescribed or Continued at Discharge Meds if any: NOT Prescribed or Continued at Discharge Venous thromboembolism Inclusion Criteria VTE Diagnosis No VTE Type NONE VTE Confirmed by (Test) EXT BILATERAL VENOUS DOPP Discharge Core Measures - Per Current guidelines, there needs to be overlap - treatment for the first 5 days of Warfarin therapy. - If discharged on Warfarin prior to 5 days of - overlap therapy, the patient will need to be - assessed for post discharge needs including - *Post discharge parental anticoagulation - *Warfarin and/or parental anticoagulation education - *Follow up date to check INR post discharge At least 5 days overlap therapy as Inpatient No Meds if any: Prescribed or Continued at Discharge Note: Overlap Therapy is Warfarin and Anticoagulant Meds if any: NOT Prescribed or Continued at Discharge
[2018-03-25] MEDS ORDERED: PREDNISONE20 M1 PO (10:27)
[2018-03-25] MEDS ORDERED: LOVENOX30 MG/0.1 SC ×2 (10:27→11:06)
[2018-03-25 11:52] VITALS: BP 164/76
--- NOTE | 2018-03-25 13:35 | PN- Pulmonary ---
Subjective HPI/Critical Care Issues: Doing better Still mildly short of breath Chest x-ray done yesterday showed small bilateral effusions Relatively stable otherwise No chest pain chest discomfort Objective Current Medications: Current Medications Sig/Hans Start time Last Medication Dose Route Stop Time Status Admin Acetaminophen 650 MG .STK-MED ONE 03/24 2035 DC PO 03/24 203 Acetaminophen 650 MG Q6P PRN 03/22 1530 AC 03/24 PO 2038 Albuterol Sulfate 3 ML TID 03/23 2100 AC 03/25 INH 0801 Albuterol Sulfate 3 ML Q6 PRN 03/22 1530 AC 03/22 INH 2105 Aspirin Buffered 81 MG DAILY 03/23 0900 AC 03/25 PO 0811 Bisacodyl 10 MG DAILY NEEDED PRN 03/22 1600 AC 03/24 KS 2041 Enoxaparin Sodium 30 MG DAILY 03/23 0900 AC 03/25 SC 0811 Ipratropium [place] 2.5 ML TID 03/23 2100 AC 03/25 INH 0801 Magnesium Hydroxide 30 ML DAILY PRN 03/22 1600 AC PO Melatonin 3 MG AT BEDTIME 03/22 2100 AC 03/24 PO 2038 Methylprednisolone 40 MG Q8 03/24 1400 DC 03/24 IV 1454 Patient Medication 1 ED ONE ONE 03/24 1630 DC Teaching ED 03/24 1631 Pravastatin Sodium 20 MG DAILY 03/23 09 AC 03/25 PO 0811 Prednisone 20 MG DAILY 03/25 0900 AC 03/25 PO 0812 Vital Signs & I&O Last 24 Hrs of Vitals and I&O: Vital Signs Date Time Temp Pulse Resp B/P B/P Pulse O2 O2 Flow FiO2 Mean Ox Delivery Rate 03/25 1152 98.4 78 20 164/76 03/25 0937 94 Nasal 1.0L Cannula 03/25 0900 95 Nasal 1.0L Cannula 03/25 0802 97 Nasal 1.0L Cannula 03/25 0640 98.4 78 20 164/76 96 Nasal Cannula 03/25 0000 93 Nasal 1.0L Cannula 03/24 2200 90 18 93 Nasal 1.0L Cannula 03/24 1955 98 Nasal 1.0L Cannula 03/24 1438 98.2 70 20 120/60 94 Nasal 1.0L Cannula 03/24 1430 99 Nasal 1.0L Cannula Intake & Output 03/25 1600 03/25 0800 08/01 0000 Intake Total 100 50 Output Total 100 250 Balance 0 -200 Intake, Oral 100 50 Number 1 1 Bowel Movements Output, Urine 100 250 Patient 143 lb Weight Weight Bed scale Measurement Method Impression/Plan Impression/Plan Impression/Plan: General: elderly lady, no apparent distress HEENT: NCAT, NO JVD Heart: s1s2, RRR, 2/6 soft pansystolic murmur at left lower sternal border Lungs: bilateral wheezingl Abd: soft, nt Ext: no peripheral edema IMPRESSION This is a lady with end-stage COPD, recent hip fracture, recent pulmonary edema with elevated troponin with non-ST segment elevation IA while she was admitted to [facility], now has Acute hypercarbic and hypoxemic respiratory failure now resolved. May be related to her recent tramadol use. This seems to be better. However she does seem to have mild COPD exacerbation. Elevated troponin recently with acute pulmonary edema postoperatively after the hip fracture suggestive of ischemic heart disease. Needs further cardiology workup. Cardiology team following Recent rib fracture Less than 5 mm lung nodule needs follow-up CT but patient not to team recent delirium RECOMMENDATION Continue nebulizer As needed upon discharge Stable Prednisone 20 mg for 2 days Cardiology follow-up Avoid all narcotic sedatives Increase activity Will follow-up closely Stable
[2018-03-25 14:42] VITALS: BP 104/58
== END 2018-03-25 17:10 ==
LOC: ERH 08:25 → ERHI 14:15 → 1NO 14:15 → ERHI 03-23 01:55 → ENRESERV 03-23 12:35 → CANRESERV 03-23 12:35 → ENRESERV 03-23 15:49 → ENTRNSPT 03-23 16:40 → 1NO 03-23 17:08 → EDTRNSPTSTS 03-23 17:21 → EDTRNSPT 03-23 17:21 → CMPTRNSPT 03-23 17:30 → ENPENDDIS 03-25 11:32 → 1NO 03-25 17:10
PROVIDERS: Emergency Medicine; Internal Medicine; Internal Medicine Interventional Cardiology; Student in an Organized Health Care Education/Training Program
DX: J96.01 Acute respiratory failure with hypoxia (principal); J96.02 Acute respiratory failure with hypercapnia; J44.1 Chronic obstructive pulmonary disease with (acute) exacerbation; I21.A1 Myocardial infarction type 2; M19.90 Unspecified osteoarthritis, unspecified site; F41.9 Anxiety disorder, unspecified; I73.9 Peripheral vascular disease, unspecified; E78.5 Hyperlipidemia, unspecified; Z79.82 Long term (current) use of aspirin; Z99.81 Dependence on supplemental oxygen; I10 Essential (primary) hypertension; E87.5 Hyperkalemia; I25.10 Atherosclerotic heart disease of native coronary artery without angina pectoris; Z87.891 Personal history of nicotine dependence
CPT/HCPCS: 1263; 1328; 1530; 1748; 36415; 36592; 71046; 80307; 81001; 82436; 93005; 93010; 93306; 93970; 96360; 96361; 96372; 96375; 97110-GP; 97116-GP; 97161-GP; 97530-GP; G0378; G8978-GP; G8979-GP; J1650; J2920